=== PATIENT | female | born 1945 | race Caucasian/White ===

== ENCOUNTER 2022-08-01 09:00 | Outpatient (RCR) | payer MEDICARE, SELFPAY ==
--- NOTE | 2022-07-11 10:22 | PT.OPE ---
[facility] Outpatient Eval Start: 06/18/22 07:56 Freq: Status: Active Protocol: Document 06/18/22 11:17 CJT (Rec: 06/18/22 11:19 CJT [id number]) E-signed By Froylan Machado PT Physical Therapy Outpatient Evaluation Insurance Information Recert Due Date 07/30/22 Insurance Name Medicare B Medical Diagnosis M25.571 - pain in R foot M25.572 - pain in L foot Treating Diagnosis M25.571 - pain in R foot M25.572 - pain in L foot Referring Enrico Miller MD Subjective Subjective Pt presents with complaints of bilateral foot pain. Pt has received therapy for this in the past with success. Pain is located at B calcaneus on plantar and posteromedial surfaces as well as in balls of her feet. Pt reports waking in the night when she rolls over with pressure on the back of her heel. Pain in the balls of her feet also is made worse with walking. Pain is sharp/achy, intermittent and relieves with rest. Pain Comments Date of Last Physician Visit 06/09/22 Current Work Status Retired Preferred Name Olga Precautions Therapy Limitations/Systems Review Not Limited Objective Range of Motion R ankle PF/DF: 55/8/5 L ankle PF/DF: 55/12/4 Strength Strength: 5/5 MMT for all LE motions bilaterally Palpation Palpation: pt notes sharp pain with palpation at posteromedial calcaneus, inferior calcaneus, and metatarsal heads 2-4 on plantar surface of foot bilaterally Assessment Assessment/Impression Pt is a 76 year old female who presents to OP PT clinic with complaints of B foot pain. Pt is well known to our clinic and has received treatment for this condition in the past as well as for her R TKA. Pt complains of pain in her feet at her calcaneus and at the balls of her feet with walking primarily. Pain has also been occurring whenever her heels make contact with a foot rest, her bed when she lays on her back, etc. Pain is sharp, intermittent, and relieves with rest or with appropriate positioning. Pt wears comfortable shoes that have been helpful in the past but only afford moderate relief at this time. Pt is a very active individual and struggles to stand on her feet for more than 60 minutes without having to sit and rest due to pain. Testing reveals strength and ROM WNL in B LEs but tightness is noted in B gastrocs (see objective). Skilled PT services are medically necessary to address deficits and return patient to highest level of function. Recommend physical therapy sessions 2/week for 6 weeks. Pt agrees with this plan. Primary Functional Limitations Walking, standing, resting feet on footrest or laying on back in bed Plan of Care Rehabilitation Potential Good Physical Therapy Goals STG - To be completed in 2-3 weeks: 1. Pt will report reduction in B foot pain by factor of 2 so that she may walk for recreation with her friends and family. 2. Pt will report ability to roll over in bed at night without waking due to pain in her heel when making contact with her mattress. LTG - To be completed in 6 weeks: 1. Pt to be I with HEP so that she may I manage progression of symptoms. 2. Pt will report ability to walk 60 minutes without onset of B heel and forefoot pain so that she may walk for pleasure and exercise with her friends and family members. Treatment Plan/Direct Interventions Ice/Cold/Vasopneumatic,Joint Mobilization,Manual Therapy, Neuromuscular Re-ed,Self-Care/ Home Management,Therapeutic Exercises,Ultrasound Frequency/Duration 2/week for 6 weeks Patient Will Be Discharged From Therapy Completion of LTG(s),Skills Plateau,Independent w/HEP, Independently Progressing Evaluation Billing Untimed Code Treatment Minutes 51 PT Eval No Charge No Complexity Low Certification Information Initial Certification Date 06/18/22 Ending Certification Date 07/30/22 Provider Signature Shows Agreement With POC & Medical Necessity Physician Comment/Change Comment or Changes Physician NPI Number #
--- NOTE | 2022-07-25 10:38 | PT.OPDN ---
[facility] Daily Note [facility] Out[facility] Daily Note Start: 06/18/22 07:56 Freq: Status: Active Protocol: Document 07/25/22 08:58 CJT (Rec: 07/25/22 10:38 CJT [id number]) E-signed By Froylan Machado, PT PT [facility] Daily Progress Note Visit Information Note Type Recert/Progress Note Visit Number 10 Insurance Authorized Visits tbd Physician Authorized Visits eval and treat Insurance Information Recert Due Date 07/30/22 Insurance Name Medicare B Medical Diagnosis M25.571 - pain in R foot M25.572 - pain in L foot Treating Diagnosis M25.571 - pain in R foot M25.572 - pain in L foot Referring Enrico Miller MD Subjective Subjective Pt is doing well. Continues to note improvements in B feet. Will complete a progress note today. Preferred Name Olga Home Exercise Home Exercise Comments [id number] Objective Other/Pertinent Objective R ankle PF/DF: 55/10/5 L ankle PF/DF: 60/10/5 Strength: 5/5 MMT for all LE motions bilaterally Palpation: pt notes minimal pain in posterior R calcaneus, otherwise pt reports no pain or tenderness with previously painful areas of B feet. Patient Instructed in Risks/Benefits Yes Manual Therapy Techniques Manual Therapy Minutes (minutes) 26 Manual Therapy Techniques STM/IASTM to B calcaneus (all sides), plantar fascia, plantar surface of metatarsal heads, gastroc, soleus, and peroneal tendons to facilitate blood flow and reduce tissue tension. Self Care Management Training Self-Care Activity Minutes (minutes) 6 Self Care Management Training B calcaneal fat pad taping w/ coverall base + skin drag at B posterior calcaneus to thicken area over bone spur Treatment Minutes Timed Code Treatment Minutes 32 Total Treatment Time 32 Billing Units Manual Therapy Units 2 Assessment/Impression Assessment/Impression Olga has progressed very well throughout her therapy so far. Is now having significantly less pain in all aspects of her feet with palpation as well as in standing and during ambulation. ROM of B ankles is relatively unchanged but WNL since initial evaluation. Pt has shown consistency with her HEP and is using lacrosse ball and acupoint ball to massage her feet daily and feels this has been most beneficial today. Next week she will attend her final two sessions and she notes that she feels confident that through her exercises and self -STM she can manage her symptoms I moving forward. Recommend continued PT services to address deficits and return pt to highest level of function. Plan of Care Physical Therapy Goals STG - To be completed in 2-3 weeks: 1. Pt will report reduction in B foot pain by factor of 2 so that she may walk for recreation with her friends and family. MET 2. Pt will report ability to roll over in bed at night without waking due to pain in her heel when making contact with her mattress. MET LTG - To be completed in 6 weeks: 1. Pt to be I with HEP so that she may I manage progression of symptoms. 2. Pt will report ability to walk 60 minutes without onset of B heel and forefoot pain so that she may walk for pleasure and exercise with her friends and family members. MET Daily Plan of Care Continue per POC Daily Plan of Care Comments Final 2 sessions next week. Recertification Information Provider Signature Shows Agreement With POC & Medical Necessity
== END 2022-10-09 16:06 | disposition home or self-care (01) ==
PROVIDERS: PCP Physician Assistant Medical; Visit Provider Physician Assistant Medical
DX: M79.672 Pain in left foot (principal); Z51.89 Encounter for other specified aftercare
CPT/HCPCS: 97035; 97110; 97140; 97161

== ENCOUNTER 2022-08-08 16:33 | Outpatient (CLI) | payer MEDICARE, SELFPAY ==
[2022-08-08 14:22] LABS: Microalbumin Creatinine Ratio 0 mg/g (0-30); Microalbumin Urine 1 mg/dL
[2022-08-08 14:27] LABS: Albumin* 4.3 g/dL (3.3-5.0); Chloride* 104 mmol/L (96-114)
[2022-08-08 14:28] LABS: Potassium* 4.4 mmol/L (3.6-5.1); Sodium* 143 mmol/L (135-149)
[2022-08-08 14:30] LABS: Alkaline Phosphatase* 95 U/L (40-150); Aspartate Amino Transferase* 26 U/L (12-35); Bilirubin Total* 0.5 mg/dL (0.1-1.5); Blood Urea Nitrogen* 16 mg/dL (7-30); Carbon Dioxide* 26 mmol/L (20-32); Cholesterol* 148 mg/dL (90-199); Creatinine* 0.9 mg/dL (0.5-1.5); Estimated Glomerular Filt Rate 65 ml/min; Glucose* 106 mg/dL (60-115); Total Protein* 7.1 g/dL (6.0-8.3)
[2022-08-08 14:31] LABS: Alanine Aminotransferase* 22 U/L (4-35); Calcium* 9.7 mg/dL (8.4-10.6); HDL Cholesterol* 49 mg/dL (>=50); LDL Cholesterol Calculated 74 mg/dL (<100); Triglycerides* 123 mg/dL (40-149)
[2022-08-08 14:58] LABS: Thyroid Stimulating Hormone* 0.767 uIU/mL (0.270-4.20)
== END 2022-08-08 16:34 | disposition home or self-care (01) ==
PROVIDERS: PCP Physician Assistant Medical; Visit Provider Physician Assistant Medical
DX: Z00.00 Encounter for general adult medical examination without abnormal findings (principal); E78.5 Hyperlipidemia, unspecified; R73.03 Prediabetes; E03.9 Hypothyroidism, unspecified
CPT/HCPCS: 80053; 80061; 82043; 82570; 84443

== ENCOUNTER 2023-01-07 09:49 | Outpatient (CLI) | payer MEDICARE, SELFPAY ==
[2023-01-07 15:13] LABS: Chlamydia DNA Amplified* NOT DETECTED (No Detected); GC DNA Amplified* NOT DETECTED (No Detected)
== END 2023-01-07 09:50 | disposition home or self-care (01) ==
PROVIDERS: PCP Physician Assistant Medical; Visit Provider Physician Assistant Medical
DX: N76.0 Acute vaginitis (principal); R10.13 Epigastric pain
CPT/HCPCS: 0353U; 80076; 83690

== ENCOUNTER 2023-01-08 14:43 | Outpatient (CLI) | payer MEDICARE, SELFPAY ==
--- NOTE | 2023-01-08 15:00 | CRLHL7_ITS ---
For Patients: As a result of the Century Cures Act, medical imaging exams and procedure reports are released immediately into your electronic medical record. You may view this report before your referring provider. If you have questions, please contact your health care provider. INDICATION: Upper quadrant pain TECHNIQUE: Ultrasound abdomen limited. Sonographic images of the right upper quadrant were obtained using novak-scale and color Doppler images. COMPARISON: None FINDINGS: Liver: Normal in size and echotexture. No masses. No intrahepatic biliary dilatation. Gallbladder: Cholelithiasis and sludge. Gallbladder wall thickening. No pericholecystic fluid. Common bile duct: 8 mm. Pancreas: Suboptimally visualized. Right kidney: Normal echotexture and cortex. No masses, stones, or hydronephrosis. IMPRESSION: Cholelithiasis and sludge with gallbladder wall thickening and mildly dilated common bile duct is 8 millimeters. Findings worrisome for cholecystitis. Dictated by Justin Benson MD @ 01/08/2023 5:09:24 PM (Electronically Signed)
--- NOTE | 2023-01-08 16:00 | CRLHL7_ITS ---
For Patients: As a result of the Century Cures Act, medical imaging exams and procedure reports are released immediately into your electronic medical record. You may view this report before your referring provider. If you have questions, please contact your health care provider. INDICATION: Weight loss, epigastric pain. TECHNIQUE: CT abdomen and pelvis acquired with 81 cc Isovue 370 IV contrast. COMPARISON: None. FINDINGS: Lower chest: Scattered atelectasis. Liver: Unremarkable. Normal in size and attenuation. No suspicious masses. Gallbladder and bile ducts: Mildly distended gallbladder with cholelithiasis and wall thickening. Pancreas: Unremarkable. No mass or inflammation. Spleen: Unremarkable. Normal in size. No masses. Adrenal glands: Unremarkable. No nodules. Kidneys: Unremarkable. No suspicious masses, stones, or hydronephrosis. GI tract: Colonic diverticulosis.. Normal in caliber. No sign of mass or inflammation. Normal appendix. Vasculature: Mild aortoiliac arterial calcifications. Abdominal aorta is normal in caliber. Mesenteric arteries are patent. Lymph nodes: Mildly enlarged portacaval lymph nodes. Peritoneum/Abdominal Wall: Unremarkable. No sign of mass or infiltration. No free air or significant free fluid. Pelvis: Hysterectomy. Mildly distended bladder. Bones: Degenerative changes. IMPRESSION: Mildly distended gallbladder with cholelithiasis and wall thickening. Constellation the findings are suspicious for acute cholecystitis. Recommend further evaluation with right upper quadrant ultrasound. Please note that all CT scans at this facility use dose modulation, iterative reconstruction, and/or weight-based dosing when appropriate to reduce radiation dose to as low as reasonably achievable. Dictated by Yaakov Cerrato MD @ 01/08/2023 4:08:54 PM (Electronically Signed)
== END 2023-01-08 14:44 | disposition home or self-care (01) ==
LOC: US 14:45
PROVIDERS: PCP Physician Assistant Medical; Visit Provider Physician Assistant Medical
DX: R10.13 Epigastric pain (principal); K80.20 Calculus of gallbladder without cholecystitis without obstruction; R63.4 Abnormal weight loss
CPT/HCPCS: 74177; 76705; Q9967

== ENCOUNTER 2023-01-09 08:15 | Day surgery (SDC) | payer MEDICARE, SELFPAY ==
[2023-01-09] VITALS (23 sets, daily range): BP systolic 89–150; BP diastolic 53–75; PULSE 67–87; RESP 12–18; TEMP 35.8–36.8; O2SAT 91–100; BMI 27.5
[2023-01-09 09:03] LABS: SARS Antigen* Negative (Negative)
--- NOTE | 2023-01-09 09:24 | W.ANESCHARGE ---
Anesthesia Charges Start Date/Time Anesthesia Start Date: 01/09/23 Anesthesia Start Time: 09:43 Stop Date/Time Anesthesia Stop Date: 01/09/23 Anesthesia Stop Time: 12:33 Summary Extremes of Age - Over 70 or under 1: MDA
[2023-01-09] MEDS: LACTATED RINGERS 1000 ML 1,000 ML 100 ML IV ×2 (09:43→10:51)
[2023-01-09] MEDS: PIPERACILLIN/TAZOBACTAM 3.375 GM in 0.9 % SODIUM CHLORIDE Mini-bag 100 ML IVPB ×3 (09:55→21:48)
[2023-01-09] MEDS: BUPIVACAINE 0.5% 30 ML INJECTION (12:07)
--- NOTE | 2023-01-09 12:35 | W.ANESCHARGE ---
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
[2023-01-09] MEDS: HYDROmorphone 0.5 mg/0.5 ml inj IVP (14:11)
[2023-01-09] MEDS: IBUPROFEN 600 MG TABLET PO (18:25)
[2023-01-09] MEDS: LACTATED RINGERS 1000 ML 1,000 ML 125 ML IV (18:26)
--- NOTE | 2023-01-09 19:11 | PC.NURSE ---
shift note: pt to floor @ 1315 via bed. pt rating abd pain 12/19. lap site glued and open to air x3. lap sites c/d/i. pt has active BS x4. pt tolerating regular diet. pt up to bathroom and voided. pt belching. vss stable post op.
--- NOTE | 2023-01-10 00:26 | PC.NURSE ---
Nursing Care Hours: 0415-1493 Pt this shift calm and cooperative with cares. No c/o pain. VSS. Tolerating regular diet. States positive for flatulence, no BM, BS active. Facilitator encouraged pt to walk the halls tomorrow to promote BM. Lap sites open to air, red boarders, no discharge. IV patent.
[2023-01-10 03:00] VITALS: BP 102/53; PULSE 62; RESP 18; TEMP 36.6; O2SAT 94
[2023-01-10] MEDS: PIPERACILLIN/TAZOBACTAM 3.375 GM in 0.9 % SODIUM CHLORIDE Mini-bag 100 ML IVPB ×2 (03:34→10:56)
--- NOTE | 2023-01-10 06:22 | PC.NURSE ---
Shift note: Pt is doing well. Ambulate with A1. Denied pain, SOB and N/V. Pt had 2 unmeasured urine tonight and confirmed of 2 other unmeasured urine before the shift start. Passing gas but no BM yet. Lung sounds clear and abdominal sound present at all 4 quadrant but hypoactive. Incision sites open to air and appears clean and dry. Vitally stable.
[2023-01-10 07:00] VITALS: BP 111/55; PULSE 74; RESP 18; TEMP 36.3; O2SAT 97
[2023-01-10 07:28] LABS: Basophils Percent Auto 0.2 % (0.0-3.0); Eosinophils Percent Auto 0.1 % (0.0-7.0); Hematocrit 35.5 % (33.0-51.0); Hemoglobin* 11.4 gm/dL (12.0-16.0); Immature Granulocytes Pct Auto 0.3 %; Lymphocytes Percent Auto 15.2 % (20-44); Mean Corpuscular HGB Conc 32 gm/dL (32-36); Mean Corpuscular Hemoglobin 29 pg (26-34); Mean Corpuscular Volume 89 fL (80-100); Monocytes Percent Auto 5.7 % (0.0-11.0); Neutrophils Percent Auto 78.5 % (42.0-72.0); Platelet Count* 415 K/uL (140-440); RDW Coefficient of Variation % 13.2 % (11.5-15.5); White Blood Count* 16.42 K/uL (4.50-11.00)
[2023-01-10 07:32] LABS: Slide Review Reflex No
[2023-01-10 07:42] LABS: Albumin* 3.4 g/dL (3.3-5.0)
[2023-01-10 07:43] LABS: Chloride* 104 mmol/L (96-114); Sodium* 138 mmol/L (135-149)
[2023-01-10 07:45] LABS: Bilirubin Direct* 0.2 mg/dL (0.0-0.5); Bilirubin Total* 0.6 mg/dL (0.1-1.5); Carbon Dioxide* 26 mmol/L (20-32); Creatinine* 0.9 mg/dL (0.5-1.5); Est. Creatinine Clearance* 41.05; Estimated Glomerular Filt Rate 65 ml/min; Total Protein* 6.9 g/dL (6.0-8.3)
[2023-01-10 07:46] LABS: Alanine Aminotransferase* 28 U/L (4-35); Alkaline Phosphatase* 93 U/L (40-150); Aspartate Amino Transferase* 33 U/L (12-35); Blood Urea Nitrogen* 11 mg/dL (7-30); Calcium* 8.7 mg/dL (8.4-10.6); Glucose* 131 mg/dL (60-115)
--- NOTE | 2023-01-10 10:13 | P.GSOP_ITS ---
Operative Note Date of procedure: 01/09/23 Pre-op diagnosis: Acute cholecystitis Post-op diagnosis: Emphysematous gallbladder, modifier 22 applied to the procedure Type of Procedure: Laparoscopic cholecystectomy Indications: Patient is a 77-year-old female who presented to her primary care provider with a 3 week history of intermittent right upper quadrant abdominal pain. A workup was obtained with evidence on workup of acute cholecystitis. I had a detailed conversation with the patient regarding the diagnosis of acute cholecystitis. We discussed the treatment options including observation with diet modification and laparoscopic cholecystectomy. We discussed the risks of surgery (including but not limited to) the risks of bleeding, infection, injury to other structures in the abdomen including bile duct injury, bile leak and conversion to an open operation. We discussed the possibility that the patient's pain not improve with surgery. We discussed the possibility of permanent post-operative diarrhea that may require medical management. Additionally, the conceivably of complications requiring additional surgery or further hospitalization were also discussed including the risks of [place], respiratory failure, stroke and blood clots. The patient voiced an understanding of our conversation, had the opportunity to ask questions, agreed to accept the risks of surgery and asked that we proceed with surgery. Procedure Description: After discussing the risks and benefits of the procedure, the patient signed informed consent.? The operative site was marked and the patient was brought to the operating room and placed on the operating table in supine position.? Care was taken to pad the patient's pressure points.?? The patient was then intubated by anesthesia.?? The operative site was then prepped and draped in the usual sterile fashion.? A time-out was then performed. Entrance to the abdomen was gained via a 5 mm Visiport in the left upper quadrant. The abdomen was insufflated and briefly surveyed for signs of injury. There was none. 11 mm umbilical port was placed as well as 2 working ports along the right costal margin. Patient was then placed in reverse Trendelenburg position with the right side up. A significant amount of omental adhesions were present around the gallbladder. Dissection was performed bluntly with the suction tile power shear operator and electrocautery. At least an hour of dissection was needed in order to visualize the gallbladder, which was distended and appeared pa rtially necrotic. The laparoscopic needle was introduced into the abdomen to decompress the gallbladder with expulsion of purulent material. A sample was sent for culture. The gallbladder fundus was grasped and retracted cephalad. The omentum was further dissected off of the infundibulum. This dissection was made difficult secondary to inflammatory adhesions present and friability of the gallbladder itself. The infundibulum was grasped. A combination of hook cautery and blunt dissection was used to carefully dissect out the cystic duct and artery until they could clearly be seen entering the gallbladder without any intervening structures. The gallbladder was dissected off the cystic plate to achieve the critical view. Once this was achieved the cystic duct and artery were each clipped with 2 clips proximally and 1 clip distally and transected with the scissors. The gallbladder was then taken off of the liver bed. During this portion of the procedure the gallbladder was very necrotic and a portion of the posterior wall was left on the gallbladder fossa. The remains of the gallbladder were then removed from the abdomen using an Endo-Catch bag. The posterior wall within the gallbladder fossa was cauterized. The gallbladder bed was surveyed for hemostasis. The abdomen was copiously irrigated with normal saline. The umbilical port fascia was closed with 0 Vicryl via the [place]- Fior. The ports were then removed under direct vision. The skin was closed with absorbable subcuticular suture. Instrument sponge and needle counts were correct at the end of the case. The patient was then woken and transferred to the PACU in stable condition. ? Findings: Emphysematous, necrotic gallbladder. [facility] Surgeon: Enid Aguilar MD Estimated blood loss (mL): 25 Specimen: Gallbladder Condition: stable Disposition: floor
--- NOTE | 2023-01-10 10:20 | PM.GSCN ---
History of Present Illness Consult details Date Seen: 01/09/23 Consult date: 01/09/23 Narrative: Patient initially presented to her primary care provider earlier this week for intermittent right upper quadrant abdominal pain. She states that the pain has been going on for about the last 3 weeks. It would get worse after eating, especially fatty foods. Over the last week the pain has persisted, making it difficult for her to do her day-to-day activities. Her abdominal surgical history is positive for hysterectomy. She denies any problems with bleeding, blood clots or anesthesia. Workup was obtained with LFTs within normal limits. A CT scan showed dilation and surrounding inflammation of the gallbladder. An abdominal ultrasound demonstrates gallbladder wall thickening, pericholecystic fluid and stones. Review of Systems Status of ROS: Reports: 10 or more systems reviewed and unremarkable except as noted in History and below [facility] Medical History (Updated 01/09/23 @ 08:44 by Ana Rouse RN) DM (diabetes mellitus), type 2 ?E11.9 - Type 2 diabetes mellitus without complications (ICD-10) Surgical History (Updated 08/07/22 @ 15:53 by Roberto Carballo) History of total knee replacement (07/2021) ?Z96.659 - Presence of unspecified artificial knee joint (ICD-10) S/P cataract surgery ?Z98.49 - Cataract extraction status, unspecified eye (ICD-10) S/P hysterectomy ?Z90.710 - Acquired absence of both cervix and uterus (ICD-10) Status post bilateral knee replacements ?Z96.653 - Presence of artificial knee joint, bilateral (ICD-10) Status post total left knee replacement ?Z96.652 - Presence of left artificial knee joint (ICD-10) Family History (Updated 07/16/22 @ 12:29 by Abigail Roberson~SHANTELL) Mother Dementia Father Alcoholism Sister Breast cancer Heart disease Social History (Updated 07/16/22 @ 12:30 by Abigail Roberson~SHANTELL) Narrative: , former smoker Smoking Status: Former smoker How often do you have a drink containing alcohol: monthly or less Alcohol type: wine How many standard drinks containing alcohol do you have on a typical day: 1 or 2 How often do you have six or more drinks on one occasion: Never AUDIT-C Alcohol total score: 1 Non-prescribed substance use: denies use Caffeine: Yes Are you using contraception or practicing any form of control: No Meds Home Medications and Allergies Home Medications Medication Instructions Recorded Confirmed Type clobetasol 0.05 % topical ointment 1 applic topical BID PRN 07/16/22 01/09/23 History estradiol 0.01% (0.1 mg/gram) 1 g vaginal 2XW 07/16/22 01/09/23 History vaginal cream ferrous gluconate 324 mg (37.5 mg 324 mg PO QDAY 07/16/22 01/09/23 History iron) tablet multivitamin (Multiple Vitamins 1 tab PO QDAY 08/13/22 01/09/23 History tablet) amoxicillin 875 mg-potassium 1 tab PO BID 01/09/23 01/09/23 History clavulanate 125 mg tablet Allergies Allergy/AdvReac Type Severity Reaction Status Date / Time No Known Drug Allergies Allergy Verified 01/09/23 08:39 Exam Narrative: Exam Narrative: General: Alert and oriented, no acute distress Respiratory: Equal breath rise bilaterally, maintained on room air CV: Regular rhythm rate, well perfused Abdomen: Soft, tender in right upper quadrant with some guarding. Const: Vital Signs, click to edit/add: Vital Signs - 24 hr 01/09/23 12:29 01/09/23 13:00 01/09/23 12:35 Temperature 97.5 F L 97.5 F L Pulse Rate 67 68 67 Pulse Rate [Left B rachial] Pulse Rate [Pulse Oximeter] Respiratory Rate 16 12 18 Blood Pressure 136/71 138/66 146/68 H Blood Pressure [Le ft Arm] Pulse Oximetry [address] [facility] O[facility] Oxygen Flow Rate 10 01/09/23 12:40 01/09/23 12:45 01/09/23 12:50 Temperature 97.4 F L Pulse Rate 67 67 68 Pulse Rate [Left B rachial] Pulse Rate [Pulse Oximeter] Respiratory Rate 18 16 12 Blood Pressure 147/71 H 150/68 H 145/70 H Blood Pressure [Le ft Arm] Pulse Oximetry [address]od OxyMask OxyMask Room Air Oxygen Flow Rate 10 6 01/09/23 12:55 01/09/23 13:41 01/09/23 13:15 Temperature 96.4 F L 96.4 F L Pulse Rate 69 68 Pulse Rate [Left B rachial] Pulse Rate [Pulse Oximeter] 72 Respiratory Rate 12 16 16 Blood Pressure 138/65 Blood Pressure [Le ft Arm] 137/60 133/62 Pulse Oximetry 94 96 Oxygen Delivery Me thod Room Air Nasal Cannula Nasal Cannula Oxygen Flow Rate 2 2 01/09/23 13:15 01/09/23 17:00 01/09/23 13:30 Temperature 96.4 F L 97.7 F 96.4 F L Pulse Rate Pulse Rate [Left B rachial] Pulse Rate [Pulse Oximeter] 68 86 71 Respiratory Rate 16 16 16 Blood Pressure Blood Pressure [Le ft Arm] 133/62 118/65 135/75 Pulse Oximetry 95 93 95 Oxygen Delivery Me thod Nasal Cannula Nasal Cannula Nasal Cannula Oxygen Flow Rate 2 2 2 01/09/23 17:47 01/09/23 14:00 01/09/23 14:15 Temperature 96.4 F L 96.4 F L 96.4 F L Pulse Rate Pulse Rate [Left B rachial] 68 Pulse Rate [Pulse Oximeter] 72 68 76 Respiratory Rate 16 16 16 Blood Pressure Blood Pressure [Le ft Arm] 137/60 131/60 136/58 L Pulse Oximetry 96 96 95 Oxygen Delivery Me thod Nasal Cannula Nasal Cannula Nasal Cannula Oxygen Flow Rate 2 2 2 01/09/23 14:30 01/09/23 14:35 01/09/23 15:00 Temperature 96.4 F L 97.3 F L Pulse Rate Pulse Rate [Left B rachial] Pulse Rate [Pulse Oximeter] 67 68 82 Respiratory Rate 16 16 16 Blood Pressure Blood Pressure [Le ft Arm] 89/67 L 116/59 L 122/62 Pulse Oximetry 93 93 93 Oxygen Delivery Me thod Nasal Cannula Nasal Cannula Nasal Cannula Oxygen Flow Rate 2 2 2 01/09/23 16:00 01/09/23 17:00 01/09/23 18:15 Temperature 97.3 F L 97.7 F 97.4 F L Pulse Rate Pulse Rate [Left B rachial] 86 Pulse Rate [Pulse Oximeter] 78 87 Respiratory Rate 16 16 16 Blood Pressure Blood Pressure [Le ft Arm] 103/58 L 118/65 129/69 Pulse Oximetry 96 93 92 Oxygen Delivery Me thod Nasal Cannula Nasal Cannula Room Air Oxygen Flow Rate 2 2 01/09/23 21:00 01/09/23 19:00 01/09/23 23:00 Temperature 97.9 F 98.2 F Pulse Rate Pulse Rate [Left B rachial] Pulse Rate [Pulse Oximeter] 76 76 70 Respiratory Rate 18 18 18 Blood Pressure Blood Pressure [Le ft Arm] 104/53 L 103/58 L Pulse Oximetry 94 91 Oxygen Delivery Me thod Room Air Room Air Oxygen Flow Rate 01/10/23 03:00 01/10/23 07:00 Temperature 97.8 F 97.4 F L Pulse Rate Pulse Rate [Left B rachial] 74 Pulse Rate [Pulse Oximeter] 62 Respiratory Rate 18 18 Blood Pressure Blood Pressure [Le ft Arm] 102/53 L 111/55 L Pulse Oximetry 94 97 Oxygen Delivery Me thod Room Air Room Air Oxygen Flow Rate Results Labs Labs: Abnormal lab results 01/10/23 Range/Units 07:14 WBC 16.42 H (4.50-11.00) K/uL Hgb 11.4 L (12.0-16.0) gm/dL Neut % (Auto) 78.5 H (42.0-72.0) % Lymph % (Auto) 15.2 L (20-44) % Neut # (Auto) 12.90 H (1.7-7.0) K/uL Glucose 131 H (60-115) mg/dL Diabetes panel 01/10/23 Range/Units 07:14 Sodium 138 (135-149) mmol/L Potassium 4.0 (3.6-5.1) mmol/L Chloride 104 (96-114) mmol/L Carbon Dioxide 26 (20-32) mmol/L BUN 11 (7-30) mg/dL Creatinine 0.9 (0.5-1.5) mg/dL Glucose 131 H (60-115) mg/dL Calcium 8.7 (8.4-10.6) mg/dL AST 33 (12-35) U/L ALT 28 (4-35) U/L Alkaline Phosphatase 93 (40-150) U/L Total Protein 6.9 (6.0-8.3) g/dL Albumin 3.4 (3.3-5.0) g/dL Calcium panel 01/10/23 Range/Units 07:14 Calcium 8.7 (8.4-10.6) mg/dL Albumin 3.4 (3.3-5.0) g/dL Pituitary panel 01/10/23 Range/Units 07:14 Sodium 138 (135-149) mmol/L Potassium 4.0 (3.6-5.1) mmol/L Chloride 104 (96-114) mmol/L Carbon Dioxide 26 (20-32) mmol/L BUN 11 (7-30) mg/dL Creatinine 0.9 (0.5-1.5) mg/dL Glucose 131 H (60-115) mg/dL Calcium 8.7 (8.4-10.6) mg/dL Adrenal panel 01/10/23 Range/Units 07:14 Sodium 138 (135-149) mmol/L Potassium 4.0 (3.6-5.1) mmol/L Chloride 104 (96-114) mmol/L Carbon Dioxide 26 (20-32) mmol/L BUN 11 (7-30) mg/dL Creatinine 0.9 (0.5-1.5) mg/dL Glucose 131 H (60-115) mg/dL Calcium 8.7 (8.4-10.6) mg/dL Total Bilirubin 0.6 (0.1-1.5) mg/dL AST 33 (12-35) U/L ALT 28 (4-35) U/L Alkaline Phosphatase 93 (40-150) U/L Total Protein 6.9 (6.0-8.3) g/dL Albumin 3.4 (3.3-5.0) g/dL All other labs normal. Imaging Abdomen CT scan report/results: report reviewed and image reviewed Abdominal ultrasound report/results: report reviewed and image reviewed Assessment and Plan Assessment and plan (1) Acute cholecystitis: Status: Acute Plan Patient is a 77-year-old female with workup in clinical symptoms consistent with acute cholecystitis. I had a detailed conversation with the patient regarding the diagnosis of acute cholecystitis. We discussed the treatment options including observation with diet modification and laparoscopic cholecystectomy. We discussed the risks of surgery (including but not limited to) the risks of bleeding, infection, injury to other structures in the abdomen including bile duct injury, bile leak and conversion to an open operation. We discussed the possibility that the patient's pain not improve with surgery. We discussed the possibility of permanent post-operative diarrhea that may require medical management. Additionally, the conceivably of complications requiring additional surgery or further hospitalization were also discussed including the risks of AL, respiratory failure, stroke and blood clots. The patient voiced an understanding of our conversation, had the opportunity to ask questions, agreed to accept the risks of surgery and asked that we proceed with surgery.
--- NOTE | 2023-01-10 10:23 | PM.DS1 ---
DS: Providers Provider Date Seen: 01/10/23 Primary care physician: Anna Cummings PA-C Attending Physician on discharge: Enid Aguilar MD DS: Summary Hospital Course Hospital Course: Patient underwent a laparoscopic cholecystectomy, with evidence of emphysematous gallbladder. She was admitted overnight for IV antibiotics. On postop day 1 she was ambulating without difficulty, tolerating a regular diet, voiding independently and passing gas. Her labs do demonstrate an elevation in WBC (16) which is not surprising postoperatively and with the amount of inflammation that was seen. Will plan to discharge patient with a course of oral antibiotics, Augmentin and follow up with myself in 2 weeks. She was instructed to call the clinic or present to the emergency department should she develop increasing right upper quadrant abdominal pain or fevers at home. Time Spent with Patient Time attestation: Total time spent providing and/or coordinating discharge services: Exam Narrative: Exam Narrative: General: Alert and oriented, no acute distress Respiratory: Equal breath rise bilaterally, maintained on room air CV: Regular rhythm rate, well perfused Abdomen: Soft, appropriately tender over incision sites, no guarding or rebound. Const: Vital Signs, click to edit/add: Vital Signs - 24 hr 01/09/23 12:29 01/09/23 13:00 01/09/23 12:35 Temperature 97.5 F L 97.5 F L Pulse Rate 67 68 67 Pulse Rate [Left B rachial] Pulse Rate [Pulse Oximeter] Respiratory Rate 16 12 18 Blood Pressure 136/71 138/66 146/68 H Blood Pressure [Le ft Arm] Pulse Oximetry 94 95 100 Oxygen Delivery Me thod Room Air Room Air OxyMask Oxygen Flow Rate 10 01/09/23 12:40 01/09/23 12:45 01/09/23 12:50 Temperature 97.4 F L Pulse Rate 67 67 68 Pulse Rate [Left B rachial] Pulse Rate [Pulse Oximeter] Respiratory Rate 18 16 12 Blood Pressure 147/71 H 150/68 H 145/70 H Blood Pressure [Le ft Arm] Pulse Oximetry 100 100 95 Oxygen Delivery Me thod OxyMask OxyMask Room Air Oxygen Flow Rate 10 6 01/09/23 12:55 01/09/23 13:41 01/09/23 13:15 Temperature 96.4 F L 96.4 F L Pulse Rate 69 68 Pulse Rate [Left B rachial] Pulse Rate [Pulse Oximeter] 72 Respiratory Rate 12 16 16 Blood Pressure 138/65 Blood Pressure [Le ft Arm] 137/60 133/62 Pulse Oximetry 94 96 Oxygen Delivery Me thod Room Air Nasal Cannula Nasal Cannula Oxygen Flow Rate 2 2 01/09/23 13:15 01/09/23 17:00 01/09/23 13:30 Temperature 96.4 F L 97.7 F 96.4 F L Pulse Rate Pulse Rate [Left B rachial] Pulse Rate [Pulse Oximeter] 68 86 71 Respiratory Rate 16 16 16 Blood Pressure Blood Pressure [Le ft Arm] 133/62 118/65 135/75 Pulse Oximetry 95 93 95 Oxygen Delivery Me thod Nasal Cannula Nasal Cannula Nasal Cannula Oxygen Flow Rate 2 2 2 01/09/23 17:47 01/09/23 14:00 01/09/23 14:15 Temperature 96.4 F L 96.4 F L 96.4 F L Pulse Rate Pulse Rate [Left B rachial] 68 Pulse Rate [Pulse Oximeter] 72 68 76 Respiratory Rate 16 16 16 Blood Pressure Blood Pressure [Le ft Arm] 137/60 131/60 136/58 L Pulse Oximetry 96 96 95 Oxygen Delivery Me thod Nasal Cannula Nasal Cannula Nasal Cannula Oxygen Flow Rate 2 2 2 01/09/23 14:30 01/09/23 14:35 01/09/23 15:00 Temperature 96.4 F L 97.3 F L Pulse Rate Pulse Rate [Left B rachial] Pulse Rate [Pulse Oximeter] 67 68 82 Respiratory Rate 16 16 16 Blood Pressure Blood Pressure [Le ft Arm] 89/67 L 116/59 L 122/62 Pulse Oximetry 93 93 93 Oxygen Delivery Me thod Nasal Cannula Nasal Cannula Nasal Cannula Oxygen Flow Rate 2 2 2 01/09/23 16:00 01/09/23 17:00 01/09/23 18:15 Temperature 97.3 F L 97.7 F 97.4 F L Pulse Rate Pulse Rate [Left B rachial] 86 Pulse Rate [Pulse Oximeter] 78 87 Respiratory Rate 16 16 16 Blood Pressure Blood Pressure [Le ft Arm] 103/58 L 118/65 129/69 Pulse Oximetry 96 93 92 Oxygen Delivery Me thod Nasal Cannula Nasal Cannula Room Air Oxygen Flow Rate 2 2 01/09/23 21:00 01/09/23 19:00 01/09/23 23:00 Temperature 97.9 F 98.2 F Pulse Rate Pulse Rate [Left B rachial] Pulse Rate [Pulse Oximeter] 76 76 70 Respiratory Rate 18 18 18 Blood Pressure Blood Pressure [Le ft Arm] 104/53 L 103/58 L Pulse Oximetry 94 91 Oxygen Delivery Me thod Room Air Room Air Oxygen Flow Rate 01/10/23 03:00 01/10/23 07:00 Temperature 97.8 F 97.4 F L Pulse Rate Pulse Rate [Left B rachial] 74 Pulse Rate [Pulse Oximeter] 62 Respiratory Rate 18 18 Blood Pressure Blood Pressure [Le ft Arm] 102/53 L 111/55 L Pulse Oximetry 94 97 Oxygen Delivery Me thod Room Air Room Air Oxygen Flow Rate DS: Data Data Completed and Pending Labs on day of discharge: Labs from last 24 hours 01/10/23 07:14 WBC 16.42 H RBC 4.00 Hgb 11.4 L Hct 35.5 MCV 89 MCH 29 MCHC 32 RDW Coeff of [place] 13.2 Plt Count 415 Neut % (Auto) 78.5 H Lymph % (Auto) 15.2 L [place] % (Auto) 5.7 Eos % (Auto) 0.1 Baso % (Auto) 0.2 Neut # (Auto) 12.90 H Lymph # (Auto) 2.50 [place] # (Auto) 0.90 Eos # (Auto) 0.00 Baso # (Auto) 0.00 Sodium 138 Potassium 4.0 Chloride 104 Carbon Dioxide 26 BUN 11 Creatinine 0.9 Estimated Creat Clear 41.05 Estimated GFR 65 Glucose 131 H Calcium 8.7 Total Bilirubin 0.6 Direct Bilirubin 0.2 AST 33 ALT 28 Alkaline Phosphatase 93 Total Protein 6.9 Albumin 3.4 Discharge Plan Discharge Disposition: Home, Self-Care Discharging Surgeon: Enid Aguilar Follow-Up Appointment: 2 week follow up Prescriptions: New oxycodone 5 mg tablet 5 mg PO Q6H PRN (Reason: pain) Qty: 15 0RF senna 8.6 mg capsule 8.6 mg PO DAILY PRN (Reason: constipation) Qty: 90 0RF amoxicillin-pot clavulanate [Augmentin] 500-125 mg tablet 1 tab PO Q12H Qty: 10 0RF Continued multivitamin [Multiple Vitamins] Tablet 1 tab PO QDAY atorvastatin 20 mg tablet 20 mg PO QHS Qty: 90 3RF Rx Instructions: for cholesterol metformin 500 mg tablet extended release 24 hr 2,000 mg PO QDAY Qty: 360 3RF Rx Instructions: 4 tablets daily for blood sugar amoxicillin-pot clavulanate 875-125 mg tablet 1 tab PO BID clobetasol 0.05 % ointment 1 applic topical BID PRN estradiol 0.01 % (0.1 mg/gram) cream 1 g vaginal 2XW ferrous gluconate 324 mg (37.5 mg iron) tablet 324 mg PO QDAY levothyroxine 100 mcg tablet 100 mcg PO QDAY Qty: 90 3RF Rx Instructions: once daily for thyroid Activity Level: No strenuous activity Activity Detail: Activity as tolerated. Avoid strenuous activity. No lifting greater than 20 lb for 2 weeks. Discharge Diet: Regular Diet Detail: Continue with a low-fat diet for 2 weeks, after 2 weeks he can slowly start adding in higher fat foods. Patient Instructions: Laxative, Stimulant (By mouth), Amoxicillin/Clavulanate Potassium (By mouth), Oxycodone, Rapid Release (By mouth), General Anesthesia (DC), Laparoscopic Cholecystectomy (DC), Post-Operative Instructions: Laparoscopic Cholecystectomy Additional Instructions: You were prescribed a narcotic pain medication. In addition you may supplement with Tylenol and/or ibuprofen. Be sure to not exceed greater than 4 g of Tylenol in a 24 hour period. While on narcotic pain medicine please take stool softeners. A prescription of stool softeners has been sent to the pharmacy. Stop if having greater than 2 stools per day. You can shower right away. Do not soak in a bath or go swimming for 2 weeks. Forms: Work/School Release Follow-up: Enid Aguilar MD [Staff Physician] - Discharge Orders: Discharge Order (Routine); Ordered 01/10/23 Ordered By: Enid Aguilar
[2023-01-10] MEDS: IBUPROFEN 600 MG TABLET PO (11:07)
--- NOTE | 2023-01-10 12:20 | PC.NURSE ---
shift note:pt up in [facility] indept. pt rating abd pain 2/10 and was medicated with ibuprofen per d.o. BS active x4. pt tolerates regular diet. incison sites x3 c/d/i. dc'd iv to Rt hand intact. Reviewed dc instructions and copies sent with pt at or. Belongings reviewed and sent with pt at or.
== END 2023-01-10 12:21 | disposition home or self-care (01) ==
LOC: OR 09:39 → MEDSURG 13:19
PROVIDERS: Anesthesiology; PCP Physician Assistant Medical; Visit Provider Surgery
PROC: 0FT44ZZ Resection of Gallbladder, Percutaneous Endoscopic Approach (ICD-10-PCS; CPT 47562; principal; 2023-01-09 09:45)
DX: K80.12 Calculus of gallbladder with acute and chronic cholecystitis without obstruction (principal)
CPT/HCPCS: 47562; 00790; 36415; 80048; 80076; 85025; 87070; 87075; 87186; 87205; 87426; 88304; 99100; A9270; J0330; J1100; J1170; J2370; J2405; J2543; J2704; J2710; J3010; J3490; J7120

== ENCOUNTER 2023-02-14 02:42 | Emergency (ER) | payer MEDICARE, SELFPAY ==
[2023-02-14] VITALS (8 sets, daily range): BP systolic 119–141; BP diastolic 67–84; PULSE 59–74; RESP 16; TEMP 36.7–36.9; O2SAT 95–99; BMI 26.1
--- NOTE | 2023-02-14 03:01 | CRLHL7_ITS ---
For Patients: As a result of the Cures Act, medical imaging exams and procedure reports are released immediately into your electronic medical record. You may view this report before your referring provider. If you have questions, please contact your health care provider. INDICATION: Chest pain TECHNIQUE: Chest radiograph 1 view COMPARISON: None FINDINGS: Mediastinum: The mediastinum is normal in appearance. The heart silhouette is normal in size and morphology. Mild elevation of the right hemidiaphragm is noted. Lung: Both lungs are unremarkable in appearance with small lung volumes. No sign of pleural effusion seen. No pneumothorax is identified. Bone and Soft tissue: Unremarkable for age. IMPRESSION: 1. No acute cardiopulmonary disease is seen. Dictated by Omer Gibson MD @ 02/14/2023 3:24:18 AM Dictated by: Omer Gibson MD @ 02/14/2023 03:24:21 (Electronically Signed)
--- NOTE | 2023-02-14 03:05 | ED_ITS ---
HPI - Chest Pain General Chief Complaint: Chest Pain Stated Complaint: Chest Pain Time Seen by Provider: 02/14/23 02:45 History of Present Illness HPI narrative: Patient is a 77-year-old woman who woke approximately an hour ago with left- sided chest pain. Pain is 610 in intensity and sharp. Pain persisted and she came emergency room where EKG upon arrival showed normal sinus rhythm without any ST or T-wave changes. Patient has no history of heart disease but does have history of borderline blood sugar. She has not taken any phrx-pio-tsrpwba medications for her pain and has had no similar symptoms previously. No diaphoresis. She does have some mild nausea. No other significant symptoms patient has otherwise been in her usual state of health. Related Data Previous Rx's Medication Instructions Recorded levothyroxine 100 mcg tablet 100 mcg PO QDAY #90 tabs 07/17/22 atorvastatin 20 mg tablet 20 mg PO QHS #90 tabs 08/13/22 metformin 500 mg tablet,extended 2,000 mg (4 x 500 mg) PO QDAY #360 08/13/22 release 24 hr tabs clobetasol 0.05 % topical ointment 1 applic topical BID PRN vulvar sx 02/05/23 #60 grams Allergies Allergy/AdvReac Type Severity Reaction Status Date / Time No Known Drug Allergies Allergy Verified 02/14/23 03:03 Review of Systems Status of ROS Reports: 10 or more systems reviewed and unremarkable except as noted in History and below [facility] Medical History DM (diabetes mellitus), type 2 ?E11.9 - Type 2 diabetes mellitus without complications (ICD-10) Surgical History Status post total left knee replacement ?Z96.652 - Presence of left artificial knee joint (ICD-10) History of total knee replacement (07/2021) ?Z96.659 - Presence of unspecified artificial knee joint (ICD-10) Status post bilateral knee replacements ?Z96.653 - Presence of artificial knee joint, bilateral (ICD-10) S/P cataract surgery ?Z98.49 - Cataract extraction status, unspecified eye (ICD-10) S/P hysterectomy ?Z90.710 - Acquired absence of both cervix and uterus (ICD-10) Family History Mother Dementia Father Alcoholism Sister Breast cancer Heart disease Social History Narrative: , former smoker Smoking Status: Former smoker Second hand tobacco smoke exposure: No How often do you have a drink containing alcohol: monthly or less Alcohol type: wine How many standard drinks containing alcohol do you have on a typical day: 1 or 2 How often do you have six or more drinks on one occasion: Never AUDIT-C Alcohol total score: 1 Non-prescribed substance use: denies use Caffeine: Yes Are you using contraception or practicing any form of control: No Exam Narrative Exam Narrative: EXAM GENERAL: Patient appears comfortable and well. EYES: No scleral icterus. LYMPH: No supraclavicular or cervical lymphadenopathy. SKIN: Visible skin seen during exam normal or with benign process only. EXT: No dependent lower extremity pedal edema. HEART: Regular rate and rhythm with no murmurs, rubs, or gallops. LUNGS: Clear to auscultation bilaterally with no crackles or wheezes. ABD: Soft, non tender, non distended. PSYCH: Good eye contact, speech is not pressured. Const Vital Signs, click to edit/add: Vital Signs - 24 hr 02/14/23 02:58 02/14/23 03:00 02/14/23 03:00 Temperature 98.0 F Pulse Rate 71 Pulse Rate [Right Pulse Oximeter] 70 Respiratory Rate 16 16 Blood Pressure 141/70 H Blood Pressure [Right Upper Arm] 141/70 H Pulse Oximetry 96 98 97 Oxygen Delivery Method Room Air 02/14/23 03:01 02/14/23 03:17 02/14/23 03:31 Temperature 98.0 F Pulse Rate 68 64 Pulse Rate [Right Pulse Oximeter] 74 Respiratory Rate 16 16 16 Blood Pressure 129/68 119/67 Blood Pressure [Right Upper Arm] 128/72 Pulse Oximetry 96 96 95 Oxygen Delivery Method Room Air 02/14/23 04:01 Temperature Pulse Rate 59 L Pulse Rate [Right Pulse Oximeter] Respiratory Rate 16 Blood Pressure 127/69 Blood Pressure [Right Upper Arm] Pulse Oximetry 99 Oxygen Delivery Method Course Course Hospital Course: Patient seen examined. EKG is normal. Troponin D-dimer CBC basic metabolic panel portable chest x-ray pending. Vital Signs Vital signs: Initial Vital Signs Pulse Rate 71 02/14/23 02:58 Respiratory Rate 16 02/14/23 02:58 Blood Pressure 141/70 H 02/14/23 02:58 Blood Pressure Mean 93 02/14/23 02:58 Pulse Oximetry 96 02/14/23 02:58 Vital Signs Pulse Rate 71 02/14/23 02:58 Respiratory Rate 16 02/14/23 02:58 Blood Pressure 141/70 H 02/14/23 02:58 Pulse Oximetry 96 02/14/23 02:58 Temperature 98.0 F 02/14/23 03:17 Pulse Rate 59 L 02/14/23 04:01 Respiratory Rate 16 02/14/23 04:01 Blood Pressure 127/69 02/14/23 04:01 Pulse Oximetry 99 02/14/23 04:01 Oxygen Delivery Method Room Air 02/14/23 03:17 MDM - Chest Pain MDM Narrative Medical decision making narrative: Patient is a 77-year-old woman who woke suddenly with chest pain. Pain was persistent when she arrived at the emergency room. EKG done at that time showed no acute abnormalities. Troponin negative x2 D-dimer negative CBC basic metabolic panel chest x-ray all unremarkable. This time sirs be noncardiac but do recommend she follow-up with her primary physician as an outpatient. She can use Tylenol Motrin ice and rest and follow up sooner problems develop. Differential Diagnosis Differential diagnosis: Likely fracture of rib, pneumothorax, stable angina, unstable angina pectoris, atypical chest pain, st elevation myocardial infarction, costochondritis and chest pain Lab Data Labs: Lab Results 02/14/23 02/14/23 Range/Units 03:00 04:30 WBC 9.06 (4.50-11.00) K/uL RBC 4.48 (4.00-5.20) m/uL Hgb 12.7 (12.0-16.0) gm/dL Hct 40.1 (33.0-51.0) % MCV 90 (80-100) fL MCH 28 (26-34) pg MCHC 32 (32-36) gm/dL RDW Coeff of [place] 14.6 (11.5-15.5) % Plt Count 195 (140-440) K/uL Neut % (Auto) 41.1 L (42.0-72.0) % Lymph % (Auto) 47.5 H (20-44) % [place] % (Auto) 6.3 (0.0-11.0) % Eos % (Auto) 4.7 (0.0-7.0) % Baso % (Auto) 0.3 (0.0-3.0) % Neut # (Auto) 3.70 (1.7-7.0) K/uL Lymph # (Auto) 4.30 H (0.90-2.90) K/uL [place] # (Auto) 0.60 (0.00-0.90) K/UL Eos # (Auto) 0.43 (0.00-0.50) K/uL Baso # (Auto) 0.03 (0.00-0.30) K/uL D-Dimer Quant (PE/DVT) 0.49 (0.00-0.50) ug/ml Sodium 142 (135-149) mmol/L Potassium 4.0 (3.6-5.1) mmol/L Chloride 106 (96-114) mmol/L Carbon Dioxide 23 (20-32) mmol/L BUN 15 (7-30) mg/dL Creatinine 0.7 (0.5-1.5) mg/dL Estimated Creat Clear 41.05 Estimated GFR 88 ml/min Glucose 118 H (60-115) mg/dL Calcium 9.5 (8.4-10.6) mg/dL Troponin I < 0.01 L (0.01-0.04) ng/mL POC Troponin I 0.00 L (0.01-0.04) ng/ml Discharge Plan Discharge Clinical Impression: Chest pain Patient Disposition: Home, Self-Care Condition: Stable Instructions: Chest Pain (ED) Additional Instructions: Tylenol Motrin Rest Fluids Activity Level: No Restrictions Discharge Diet: Regular Prescriptions: No Action atorvastatin 20 mg tablet 20 mg PO QHS Qty: 90 3RF Rx Instructions: for cholesterol metformin 500 mg tablet extended release 24 hr 2,000 mg PO QDAY Qty: 360 3RF Rx Instructions: 4 tablets daily for blood sugar clobetasol 0.05 % ointment 1 applic topical BID PRN (Reason: vulvar sx) Qty: 60 1RF levothyroxine 100 mcg tablet 100 mcg PO QDAY Qty: 90 3RF Rx Instructions: once daily for thyroid Follow Up/Referrals: Anna Cummings PA-C [Primary Care Provider] - Stand Alone Forms: [employer] Info Instructions
[2023-02-14 03:14] LABS: Basophils Absolute Auto 0.03 K/uL (0.00-0.30); Basophils Percent Auto 0.3 % (0.0-3.0); Eosinophils Absolute Auto 0.43 K/uL (0.00-0.50); Eosinophils Percent Auto 4.7 % (0.0-7.0); Hematocrit 40.1 % (33.0-51.0); Hemoglobin* 12.7 gm/dL (12.0-16.0); Immature Granulocytes Abs Auto 0.01 K/uL (0.00-0.30); Immature Granulocytes Pct Auto 0.1 %; Lymphocytes Percent Auto 47.5 % (20-44); Mean Corpuscular HGB Conc 32 gm/dL (32-36); Mean Corpuscular Hemoglobin 28 pg (26-34); Mean Corpuscular Volume 90 fL (80-100); Monocytes Percent Auto 6.3 % (0.0-11.0); Neutrophils Percent Auto 41.1 % (42.0-72.0); Platelet Count* 195 K/uL (140-440); RDW Coefficient of Variation % 14.6 % (11.5-15.5); Red Blood Count 4.48 m/uL (4.00-5.20); White Blood Count* 9.06 K/uL (4.50-11.00)
[2023-02-14 03:16] LABS: Slide Review Reflex No
[2023-02-14 03:29] LABS: Chloride* 106 mmol/L (96-114)
[2023-02-14 03:30] LABS: Sodium* 142 mmol/L (135-149)
[2023-02-14 03:32] LABS: Creatinine* 0.7 mg/dL (0.5-1.5); Est. Creatinine Clearance* 41.05; Estimated Glomerular Filt Rate 88 ml/min
[2023-02-14 03:33] LABS: Blood Urea Nitrogen* 15 mg/dL (7-30); Calcium* 9.5 mg/dL (8.4-10.6); Carbon Dioxide* 23 mmol/L (20-32); D Dimer Quantitative* 0.49 ug/ml (0.00-0.50); Glucose* 118 mg/dL (60-115)
[2023-02-14 03:46] LABS: Troponin I* < 0.01 ng/mL (0.01-0.04)
== END 2023-02-14 04:48 | disposition home or self-care (01) ==
PROVIDERS: Emergency Provider Internal Medicine; PCP Physician Assistant Medical
DX: R07.9 Chest pain, unspecified (principal)
CPT/HCPCS: 36415; 71045; 80048; 84484; 85025; 85379; 93005; 94761; 99283; 99284; 99285

== ENCOUNTER 2024-04-25 08:04 | Outpatient (CLI) | payer MEDICARE, SELFPAY ==
--- OUTSIDE RECORDS SUMMARY | 2024-04-26 15:01 | XMS_ITS | Clinical Summary ---
Author Organization [employer] [facility] [employer] Address [place], [place] [address] Care Team Providers Care Talent Management Specialist Name Role Phone Pcp, No Primary Care Provider Unavailabl e Allergies Active Allergy Reactions Criticality Noted Date Comments Cortisone Flushing 04/30/2018 Medications Medication Sig Dispensed Refills Start Date End Date Status atorvastatin (LIPITOR) 20 mg tablet Take 1 tablet by mouth at bedtime. 04/13/2018 Active levothyroxine (SYNTHROID) 125 mcg tablet Take 1 tablet by mouth once daily. 04/11/2018 Active metFORMIN (GLUCOPHAGE) 500 mg tablet Take 1 tablet by mouth once daily with a meal. 03/21/2018 Active hydrocortisone 1 % creamIndications:psor iasis Apply topically to affected area(s) once daily if needed for Itching. To hand Active clobetasol 0.05% (TEMOVATE 0.05% OINTMENT) 0.05 % ointment APPLY TOPICALLY TWICE DAILY SPARINGLY TO AFFECTED AREA 08/30/2020 Active Sodium Fluoride-Pot Nitrate 1.1-5 % pste USE DIRECTED 04/22/2021 Active Active Problems No known active problems Encounters Date Type Department Care Team Description 03/24/2024 Lab Requisition [facility] [phone] Pilar Good, SALES AND SERVICE ENGINEER from Last 3 Months Social History Tobacco Use Types Packs/Day Years Used Date Smoking Tobacco: Former Cigarettes Q uit: 1975 Smokeless Tobacco: Never Tobacco Cessation:Counseling Given: Yes Social Connections Answer Date Recorded Frequency of Communication with Friends and Fami ly Not on file 10/12/2021 Financial Resource Strain Answer Date R ecorded Difficulty of Paying Living Expenses Not on file 10/12/2021 Difficulty of Paying Living Expenses Not on file 10/12/2021 Sex and Gender Information Value Date Recorded Sex Assigned at Not on file Gender Identity Not on file Sexual Orientation Not on file Obstetrics History Last Filed Vital Signs Vital Sign Reading Time Taken Comments Blood Pressure 136/83 05/30/2021 8:29 AM CDT Pulse 74 05/30/2021 8:29 AM CDT Temperature 36.6 ??C (97.9 ??F) 05/30/2021 8 :29 AM CDT Respiratory Rate 16 04/30/2018 3:00 PM CDT Oxygen Saturation 100% 05/30/2021 8:2 9 AM CDT Inhaled Oxygen Concentration - - Weight 89.3 kg (196 lb 12.8 oz) 021 8:29 AM CDT sandals on Height 165.1 cm (5' 5) 04/30/2018 11:0 4 AM CDT Body Mass Index 32.75 04/30/2018 11:04 AM CDT Plan of Treatment Health Maintenance Due Date Last Done Comments Tdap 1954 Depression screening for age 12+ 1955 BMI (ht and wt on same day) for age 18+ 1961 Tetanus booster 1963 Zoster (shingles) series for age 50+ (1 of 2) 1993 DEXA/DXA scan for age 65+ 2008 Medicare Wellness for age 65+ 2008 Pneumococcal series for age 65+ (1 of 1 - PCV) 2008 COVID-19 vaccine series (3 - 24 season) 2023 12/11/2020, 11/20/2020 Influenza for age 65+ 06/12/2024 Procedures Procedure Name Priority Date/Time Associated Diagnosis Comments LAB TRACKING EVENT Routine 03/24/2024 1: 30 PM CDT PATH TISSUE EXAM Routine 03/24/2024 1:30 PM CDT from Last 3 Months Results * LAB TRACKING EVENT (03/24/2024 1:30 PM CDT) Other (Other) Client Collect / Unknown 03/24/2024 1:30 PM CDT 03/24/2024 3:36 PM CDT Pilar Good SALES AND SERVICE ENGINEER LAB BILL ONLY [email or web address] [facility] [address] [place] [address], * PATH TISSUE EXAM (03/24/2024 1:30 PM CDT) Case Report Pathology Report ?Case: [id number] ? Authorizing Provider: ??Pilar Good NP ?? Collected: ? 03/24/2024 1330 ? Ordering Location: ? [facility] ?Received: ?03/24/2024 1616 ? Pathologist: ? Toro Gomez MD ? Specimen: ?Left Labia ? 03/28/2024 3:30 PM CDT [facility] Final Diagnosis A) VULVA, LEFT, BIOPSY: 1. Hypertrophic lichenoid dermatitis, with features suggestive of lichen simplex chronicus 2. GMS stain is negative for fungal organisms 3. Negative for dysplasia and malignancy 03/28/2024 3:30 PM CDT [facility] Comment A) The differential diagnosis includes early lichen sclerosus, lichen planus, lichenoid drug reaction, or lichenoid keratosis. 03/28/2024 3:30 PM CDT [facility] Clinical Information Vulvar lesion. History of lichenoid mucositis ([id number], 01/2023) Physical exam shows 1.0 x 0.5 cm white, slightly raised plaque on the inner upper left labium minus. 03/28/2024 3:30 PM CDT [facility] Gross Description A) Received in formalin, labeled with the patient's name and date of , is a 0.4 x 0.3 cm skin punch biopsy narrowly excised to a depth of 0.4 cm. ??The skin surface is henry-white and variably slightly raised. ??The specimen is inked blue, bisected, and entirely submitted in 1 cassette. EKW 03/24/2024 03/28/2024 3:30 PM CDT [facility] Microscopic Description The final diagnosis is based on microscopic examination of appropriate sections of all specimens. Immunohistochem ical/special staining was performed, the results of which are as follows: - p53: Non-aberrant (heterogeneous expression) - p16: Non-aberrant (patchy positive) - GMS: Negative 03/28/2024 3:30 PM CDT [facility] Additional Information Interpreted at [employer] [facility] - [address], [place] [address] 03/28/2024 3:30 PM CDT [facility] Other (Left Labia) 03/24/2024 1:30 PM CDT 03/24/2024 4:16 PM CDT Pilar Good NP PATHOLOGY/CYTOLOG Y [facility] [address] [place] [address], [place] from Last 3 Months Care Teams Talent Management Specialist Relationship Specialty Start Date End Date Pcp, No . PCP - General 04/30/18
== END 2024-04-25 08:05 | disposition home or self-care (01) ==
LOC: NFLDREF 04-26 14:59
PROVIDERS: PCP Physician Assistant Medical; Referring Provider Physician Assistant Medical; Visit Provider Physician Assistant Medical
DX: E03.9 Hypothyroidism, unspecified (principal); I11.9 Hypertensive heart disease without heart failure; R73.03 Prediabetes; E78.5 Hyperlipidemia, unspecified
CPT/HCPCS: 80053; 80061; 84443

== ENCOUNTER 2024-04-27 13:10 | Outpatient (CLI) | payer MEDICARE, SELFPAY ==
--- OUTSIDE RECORDS SUMMARY | 2024-04-27 13:16 | XMS_ITS | Clinical Summary ---
Author Organization [employer] [facility] Address [place], [place] [address] Care Team Providers Care Durability Engineer Name Role Phone Pcp, No Primary Care [...] Department Care Team Description 03/24/2024 Lab Requisition [facility] [phone] Pilar Good, TRESTLEMAN from Last 3 Months Social History Tobacco [...] CDT 03/24/2024 3:36 PM CDT Pilar Good TRESTLEMAN LAB BILL ONLY [employer] [facility] [address] [place] [address], * PATH TISSUE EXAM (03/24/2024 1:30 PM CDT) Case Report Pathology Report ?Case: [id number] ? Authorizing Provider: ??Pilar Good NP ?? Collected: ? 03/24/2024 1330 ? Ordering Location: ? [facility] ?Received: ?03/24/2024 1616 ? Pathologist: ? Toro Gomez MD ? Specimen: ?Left Labia ? 03/28/2024 3:30 PM CDT [facility]C [facility]AL LABORATORY Final Diagnosis A) VULVA, LEFT, BIOPSY: 1. Hypertrophic lichenoid dermatitis, with features suggestive of lichen simplex chronicus 2. GMS stain is negative for fungal organisms 3. Negative for dysplasia and malignancy 03/28/2024 3:30 PM CDT [facility] Comment A) The differential diagnosis includes early lichen sclerosus, lichen planus, lichenoid drug reaction, or lichenoid keratosis. 03/28/2024 3:30 PM CDT [facility] Clinical Information Vulvar lesion. History of lichenoid mucositis ([id number], 01/2023) Physical exam shows 1.0 x 0.5 cm white, slightly raised plaque on the inner upper left labium minus. 03/28/2024 3:30 PM CDT [facility] Gross Description A) Received in formalin, labeled with the patient's name and date of , is a 0.4 x 0.3 cm skin punch biopsy narrowly excised to a depth of 0.4 cm. ??The skin surface is henry-white and variably slightly raised. ??The specimen is inked blue, bisected, and entirely submitted in 1 cassette. EKW 03/24/2024 03/28/2024 3:30 PM CDT [facility] Microscopic Description The final diagnosis is based on microscopic examination of appropriate sections of all specimens. Immunohistochem ical/special staining was performed, the results of which are as follows: - p53: Non-aberrant (heterogeneous expression) - p16: Non-aberrant (patchy positive) - GMS: Negative 03/28/2024 3:30 PM CDT [facility] Additional Information Interpreted at [facility] [employer] [facility] - [address], [place] [address] 03/28/2024 3:30 PM CDT [facility] Other (Left Labia) 03/24/2024 1:30 PM CDT 03/24/2024 4:16 PM CDT Pilar Good NP PATHOLOGY/CYTOLOG Y [facility] [address] [place] [address], [place] from Last 3 Months Care Teams Durability Engineer Relationship Specialty Start Date End Date Pcp, No . PCP - General 04/30/18
== END 2024-04-27 13:11 | disposition home or self-care (01) ==
PROVIDERS: PCP Physician Assistant Medical; Visit Provider Physician Assistant Medical
DX: E03.9 Hypothyroidism, unspecified (principal); E78.5 Hyperlipidemia, unspecified; R73.03 Prediabetes; G57.93 Unspecified mononeuropathy of bilateral lower limbs
CPT/HCPCS: 82306; 82607; 82728; 82746; 84425

== ENCOUNTER 2024-06-30 14:36 | Outpatient (CLI) | payer MEDICARE, SELFPAY ==
--- OUTSIDE RECORDS SUMMARY | 2024-06-30 14:39 | XMS_ITS | Clinical Summary ---
Author Organization [employer] [facility] Address [place], [place] [address] Care Team Providers Care Automotive Parts Counterperson Name Role Phone Pcp, No Primary Care [...] Active Active Problems No known active problems Social History Tobacco Use Types Packs/Day Years [...] for age 50+ (1 of 2) 1993 RSV vaccine for adults or pr egnancy (1 - 1-dose 60+ series) 2003 DEXA/DXA scan for age 65+ 2008 Medicare Wellness for age 65+ 2008 Pneumococcal series for age 65+ (1 of 1 - PCV) 2008 COVID-19 vaccine series (3 - season) 2024 12/11/2020, 11/20/2020 Influenza for age 65+ 06/12/2024 Care Teams Automotive Parts Counterperson Relationship Specialty Start Date End Date Pcp, No . PCP - General 04/30/18
--- NOTE | 2024-06-30 15:00 | CRLHL7_ITS ---
For Patients: As a result of the Cures Act, medical imaging exams and procedure reports are released immediately into your electronic medical record. You may view this report before your referring provider. If you have questions, please contact your health care provider. BILATERAL SCREENING MAMMOGRAM WITH COMPUTER-AIDED DETECTION AND TOMOSYNTHESIS TECHNIQUE: CC and MLO views were obtained. These mammographic images have been obtained using full-field digital technique. These mammographic images were interpreted with the benefit of computer-aided detection. Breast tomosynthesis was used in this interpretation. COMPARISON FILM: 12/18/21, 07/23/20, 03/30/18. FINDINGS: There are scattered areas of fibroglandular density. IMPRESSION: There is no radiographic evidence for malignancy. ASSESSMENT: BI-RADS Category 2: Benign RECOMMENDATION: Routine screening mammogram in 1 year. A lay language report of this examination will be provided to the patient. JUSTIN BHAKTA M.D. Diagnostic Radiologist [email or web address] YONI/nancy Transcribed: 07/01/2024, 3:[address]/Dictated by: Justin Bhakta MD @ 07/01/2024 12:39:00 PM (Electronically Signed)
--- NOTE | 2024-06-30 15:30 | CRLHL7_ITS ---
For Patients: As a result of the Century Cures Act, medical imaging exams and procedure reports are released immediately into your electronic medical record. You may view this report before your referring provider. If you have questions, please contact your health care provider. DXA BONE MINERAL DENSITY STUDY Reason for exam: Screening. Current height (in): 65. Weight (lb): 165. Menopause age: 36. Ethnicity: White. 1. Have you had a previous hip or vertebral fracture? No. 2. Have you had any fractures during your adult life which did not result from significant trauma (e.g., auto accident)? No. 3. Did either of your parents have a hip fracture? No. 4. Do you smoke? No. 5. Have you ever taken Glucocorticoids? No. 6. Do you have rheumatoid arthritis? No. 7. Do you have secondary osteoporosis? No. 8. Do you drink 3 or more alcoholic drinks per day? No. 9. Are you being treated for osteoporosis? No. 10. Have you ever taken any of the following medications: Actonel, Evista, Fosamax, Miacalcin, Reclast, Boniva, Forteo, HRT (i.e. estrogen/hormone therapy), Protelos, Prolia, Vitamin D, Calcium, other ??? please specify. ANSWER: Yes, vitamin D and calcium. 11. Do you have any of the following medical conditions: Anorexia or bulimia, asthma or emphysema, end stage renal disease, hyperparathyroidism, any seizure disorders, cancer, inflammatory bowel diseases, hysterectomy, other ??? please specify. ANSWER: Yes, hysterectomy. 12. What was your maximum height (inches)? 66. 13. Do you perform weight bearing exercise regularly? Yes. 14. Do you regularly consume dairy products? Yes. 15. Do you drink caffeinated beverages? Yes. 16. At what age did your period start? 10. 17. Are you premenopausal? No. 18. How many full term pregnancies have you had? 2. 19. Have you ever missed your period for more than 6 months in a row (not including or menopause)? No. TECHNIQUE: Bone mineral density study was performed using the [employer] FINDINGS: The results of the study expressed as bone mineral density (BMD) are as follows: Lumbar spine L1-L4(L3): BMD: 1.198 g/cm2. T-score: 1.5. Z-score: 4.2. Neck Left: BMD: 0.865 g/cm2. T-score: 0.1. Z-score: 2.5. Right: BMD: 0.879 g/cm2. T-score: 0.3. Z-score: 2.6. Total Left: BMD: 1.060 g/cm2. T-score: 1.0. Z-score: 3.1. Right: BMD: 0.994 g/cm2. T-score: 0.4. Z-score: 2.5. IMPRESSION: Normal bone density. *Comparison exams done prior to 03/2020 were performed on different unit, Nanostellar. COMPARISON: Compared with scan of 12/18/2021, the bone mineral density has increased by 0.5 percent at the spine and decreased by 5.7 percent at the hip. Compared with scan of 06/02/2019, the bone mineral density has decreased by 9.1 percent at the spine and decreased by 4.1 percent at the hip. Justin Hernandez M.D. Diagnostic Radiologist [email or web address] SP/Dictated by: Justin Hernandez MD @ 07/01/2024 8:11:00 AM (Electronically Signed)
== END 2024-06-30 14:37 | disposition home or self-care (01) ==
LOC: MAMMO 14:37
PROVIDERS: PCP Physician Assistant Medical; Visit Provider Physician Assistant Medical
DX: Z12.31 Encounter for screening mammogram for malignant neoplasm of breast (principal); Z13.820 Encounter for screening for osteoporosis; Z78.0 Asymptomatic menopausal state
CPT/HCPCS: 77063; 77067; 77080

== ENCOUNTER 2025-03-25 16:55 | Emergency (ER) | payer MEDICARE, SELFPAY ==
--- OUTSIDE RECORDS SUMMARY | 2025-02-13 08:57 | XMS_ITS ---
Author Organization [facility] Address [address] , [address] [place] [address] Phone Care Team Providers Care Full Stack Engineer Name Role Phone Lebron GILLIAM,DALIA,RICHELLE, Raisa Quiñones Unavailable + Conditions or Problems No information available. Medications Medication Instructions Start Date Stop Date Generic Name [facility] Provider levothyroxine levothyroxine Raisa Diana DNP,VIDEO TAPE DUPLICATOR,MOLDED CANDLES WICKER LEVOTHYROXINE SODIUM 100 MCG TABS levothyroxine [id number] Raisa Diana DNP,VIDEO TAPE DUPLICATOR,MOLDED CANDLES WICKER METFORMIN HCL ER 500 MG LL74D-CGD metformin (glucophage xr) [id number] Raisa Diana DNP,VIDEO TAPE DUPLICATOR,MOLDED CANDLES WICKER ATORVASTATIN CALCIUM 20 MG TABS atorvastatin [id number] Raisa Diana DNP,VIDEO TAPE DUPLICATOR,MOLDED CANDLES WICKER ALPHA-LIPOIC ACID 600 MG CAPS alpha lipoic acid [id number] Raisa Diana DNP,VIDEO TAPE DUPLICATOR,MOLDED CANDLES WICKER cyanocobalamin (vitamin B-12) (cyanocobalamin (vitamin b-12)) vitamin B-12 Raisa Diana DNP,VIDEO TAPE DUPLICATOR,MOLDED CANDLES WICKER multivitamin multivitamin Raisa Diana DNP,VIDEO TAPE DUPLICATOR,MOLDED CANDLES WICKER levothyroxine levothyroxine Raisa Diana DNP,VIDEO TAPE DUPLICATOR,MOLDED CANDLES WICKER Medications Administered No information available. Allergies, Adverse Reactions, Alerts No information available. Results Date Name Value Unit Range Flag Description Office Visit: Office Visit f ax MEDS REVIEW Done Documenta tion of current medications (procedure) Plan of Care Type Date Detail Appointment 09:40 AM Oscar Jaen MD , [address], [address], [place], [address], Pending order Follow up Pending order Follow up Pending order Patient Instruct ions Procedures No information available. Vital Signs No information available. Immunizations No information available. Advance Directives No information available.
--- OUTSIDE RECORDS SUMMARY | 2025-02-13 08:57 | XMS_ITS ---
Author Organization [facility] Address [address] , [address] [place] [address] Phone Care Team Providers Care Project Geophysicist Name Role Phone Lebron GILLIAM,DALIA,RICHELLE, Raisa Quiñones Unavailable + Conditions or Problems No information available. Medications Medication Instructions Start Date Stop Date Generic Name [facility] Provider levothyroxine levothyroxine Raisa Diana DNP,STABLE CLEANER,PROFILE SAW SETUP OPERATOR LEVOTHYROXINE SODIUM 100 MCG TABS levothyroxine [id number] Raisa Diana DNP,STABLE CLEANER,PROFILE SAW SETUP OPERATOR METFORMIN HCL ER 500 MG [id number] metformin (glucophage xr) [id number] Raisa Diana DNP,STABLE CLEANER,PROFILE SAW SETUP OPERATOR ATORVASTATIN CALCIUM 20 MG TABS atorvastatin [id number] Raisa Diana DNP,STABLE CLEANER,PROFILE SAW SETUP OPERATOR ALPHA-LIPOIC ACID 600 MG CAPS alpha lipoic acid [id number] Raisa Diana DNP,STABLE CLEANER,PROFILE SAW SETUP OPERATOR cyanocobalamin (vitamin B-12) (cyanocobalamin (vitamin b-12)) vitamin B-12 Raisa Diana DNP,STABLE CLEANER,PROFILE SAW SETUP OPERATOR multivitamin multivitamin Raisa Diana DNP,STABLE CLEANER,PROFILE SAW SETUP OPERATOR levothyroxine levothyroxine Raisa Diana DNP,STABLE CLEANER,PROFILE SAW SETUP OPERATOR Medications Administered No information available. Allergies, Adverse Reactions, Alerts No information available. Results Date Name Value Unit Range Flag Description Office Visit: Office Visit f ax MEDS REVIEW Done Documenta tion of current medications (procedure) Plan of Care Type Date Detail Appointment 09:40 AM Oscar Jean MD , [address], [address], [place], [address], Pending order Follow up Pending order Follow up Pending order Patient Instruct ions Procedures No information available. Vital Signs No information available. Immunizations No information available. Advance Directives No information available.
[2025-03-25 16:57] VITALS: BP 145/83; PULSE 89; RESP 18; TEMP 36.4; O2SAT 95; BMI 25.3
--- OUTSIDE RECORDS SUMMARY | 2025-03-25 16:57 | XMS_ITS | Clinical Summary ---
Author Organization [facility] Address [address] , [address] [place] [address] Phone Care Team Providers Care Best Second Jobs Name Role Phone [facility] Unavailable Unava ilable Conditions or Problems Problem Name Problem Code Onset Date Status Entry Date Provider Comment Standard Description Annotate Neuropathic pain 719998311 (SNOMED CT) Active 06/06 Oscar Jean MD Neuropathic pain Peripheral polyneuropathy [id number] (SNOMED CT) Active 06/06 Oscar Jean MD Peripheral nerve disease Medications Medication Instructions Start Date Stop Date Generic Name [facility] Provider levothyroxine levothyroxine Raisa Diana DNP,ROOF TRUSS DETAILER,TIER IN LEVOTHYROXINE SODIUM 100 MCG TABS levothyroxine [id number] Raisa Diana DNP,ROOF TRUSS DETAILER,TIER IN METFORMIN HCL ER 500 MG [id number] metformin (glucophage xr) [id number] Raisa Diana DNP,ROOF TRUSS DETAILER,TIER IN ATORVASTATIN CALCIUM 20 MG TABS atorvastatin [id number] Raisa Diana DNP,ROOF TRUSS DETAILER,TIER IN ALPHA-LIPOIC ACID 600 MG CAPS alpha lipoic acid 98005246344 Raisa Diana DNP,ROOF TRUSS DETAILER,TIER IN cyanocobalamin (vitamin B-12) (cyanocobalamin (vitamin b-12)) vitamin B-12 Raisa Diana DNP,ROOF TRUSS DETAILER,TIER IN multivitamin multivitamin Raisa Diana DNP,ROOF TRUSS DETAILER,TIER IN levothyroxine levothyroxine Raisa Diana DNP,ROOF TRUSS DETAILER,TIER IN Medications Administered No information available. Allergies, Adverse Reactions, Alerts Allergy Name Reaction Description Start Date Severity Statu s Provider NO KNOWN DRUG ALLERGIES Mild Activ e Oscar Jean MD Results Date Name Value Unit Range Flag Description Office Visit: Office Visit N europathic pn of both feet MRI/CT at [place]. SMOK STATUS former smoker Tobacco smoking status Lab Report: (P) METHYLMALONI C ACID, IMMUNOFIXATION, SERUM, VITAMIN B6, P ... VIT B6 7.2 ng/mL 2.1-21.7 VITAMIN B6, PLASMA IFEINTERPUR * immunofix ation electrophoresis interpretation, urine METHYL MALON * nmol/L methylma lonic acid (MMA), serum Office Visit: Office Visit f ax MEDS REVIEW Done Documenta tion of current medications (procedure) Internal Other: Authorizatio n AUTHBENEFIT Yes Authoriza tion: Assignment of Benefits and Payment Agreement [email or web address] Yes Authorizat ion: Authorization for [facility] to leave messages, voicemail, send text messages, send emails AUTHRELHCARE Yes Authoriz ation: Release/Retrieval of Information to/from Healthcare Facilities, Pharmacy Benefit Payers and Providers ROIAUTHOTHER Yes Authoriz ation: Release of Information - Authorize Others/Insurance - Payment and Healthcare Operations [email or web address] Yes Authoriza tion: Release of Information - Authorize [facility] - Payment and Healthcare Operations AUTHPRIVPRAC Yes Authoriz ation: Notice of privacy practices HIECONSENT Yes Consent To Release information to the Health Information Exchange (HIE) Plan of Care Type Date Detail Appointment 09:40 AM Oscar Jean MD , [address] [facility], [address], [place], [address], Pending order Follow up Pending order Follow up Pending order Patient Instruct ions Pending order Follow up ROCIO Pending order Vitamin B6 (Pyri doxine) - fasting after midnight Pending order Follow up ROCIO Pending order Immunofixation S maia Pending order Methylmalonic Ac id Serum (MMA) Pending order Vitamin B6 (Pyri doxine) - fasting after midnight Pending order Patient Instruct ions Pending order Obtain outside r ecords Pending order Obtain outside r ecords Procedures Code Procedure Name Date Entry Date ORDERS Patient Instructions ORDERS Methylmalonic Acid Serum (MMA) ORDERS Immunofixation Serum ORDERS Obtain outside records 06/06 ORDERS Vitamin B6 (Pyridoxine) - fasting after m idnight Vital Signs No information available. Immunizations No information available. Advance Directives No information available.
--- OUTSIDE RECORDS SUMMARY | 2025-03-25 16:57 | XMS_ITS | Clinical Summary ---
Author Organization [facility] Address [address] [place] [address] Care Team Providers Care Spin Instructor Name Role Phone Pcp, No Primary Care Provider Unavailabl e Allergies Active Allergy Reactions Criticality Noted Date Comments Cortisone Flushing 04/30/2018 Medications atorvastatin (LIPITOR) 20 mg tablet Take 1 tablet by mouth at bedtime. 8 Active levothyroxine (SYNTHROID) 125 mcg tablet Take 1 tablet by mouth once daily. 8 Active metFORMIN (GLUCOPHAGE) 500 mg tablet Take 1 tablet by mouth once daily with a meal. 8 Active hydrocortisone 1 % creamIndication s:psoriasis Apply topically to affected area(s) once daily if needed for Itching. To hand Active clobetasol 0.05% (TEMOVATE 0.05% OINTMENT) 0.05 % ointment APPLY TOPICALLY TWICE DAILY SPARINGLY TO AFFECTED AREA 0 Active Sodium Fluoride-Pot Nitrate 1.1-5 % pste USE DIRECTED 1 Active Active Problems No known active problems [...] Paying Living Expenses Not on file 10/12/2021 Comments Unknown Sex and Gender Information Value Date Recorded Sex Assigned at Not on file Legal Sex Female 6:36 AM EXPEDITER SERVICE ORDER Gender Identity Not on file Sexual Orientation Not on file Obstetrics History Last Filed Vital Signs Vital Sign Reading Time Taken Comments Blood Pressure 136/83 05/30/2021 8:29 AM CDT Pulse 74 05/30/2021 8:29 AM CDT Temperature 36.6 C (97.9 F) 05/30/2021 8:29 AM CDT Respiratory Rate 16 04/30/2018 3:00 [...] for age 18+ 1961 Tetanus booster 1963 Pneumococcal series for age 50+ (1 of 1 - PCV) 1993 Zoster (shingles) series for age 50+ (1 of 2) 1993 DEXA/DXA scan for age 65+ 2008 Medicare Wellness for age 65+ 2008 RSV vaccine for adults or (1 - 1-dose 75+ series) 2018 COVID-19 vaccine series ( season) 2024 12/11/2020, 11/20/2020 Influenza Vaccine (Season Ended) 2025 Hepatitis B series for 19+ Aged Out N o longer eligible based on patient's age to complete this topic Insurance [id number] [place] [address] UCARE MEDICARE ADVANTAGE MR Care Teams Spin Instructor Relationship Specialty Start Date End Date Pcp, No . PCP - General 04/30/18
--- NOTE | 2025-03-25 17:21 | CRLHL7_ITS ---
For Patients: As a result of the Cures Act, medical imaging exams and procedure reports are released immediately into your electronic medical record. You may view this report before your referring provider. If you have questions, please contact your health care provider. Indication: Pain Technique: Frontal view of the chest and frontal and oblique views of the right ribs Comparison: None Findings/Impression: No acute, displaced fracture or malalignment. No suspicious osseous lesions. The soft tissues are unremarkable. The cardiomediastinal silhouette and pulmonary vasculature are unremarkable. There is no focal airspace consolidation, pleural effusion, or pneumothorax. Mild elevation of the right hemidiaphragm with likely minimal adjacent right basilar atelectatic changes. Dictated by Ace Onofre MD @ 03/25/2025 6:12:41 PM (Electronically Signed)
--- NOTE | 2025-03-25 17:23 | ED.GENADULT ---
HPI - General Adult General Chief complaint: Shoulder Injury/Pain Stated complaint: R side pain, and R shoulder pain Time Seen by Provider: 03/25/25 16:57 History of Present Illness HPI narrative: This 79-year-old female comes in reporting right lateral rib pain that began this morning. She does not report any injury event or strenuous activity but does state that she is being doing lots of coughing recently that she attributes to allergies. She also reports fiber 6 weeks of right shoulder pain that she attributes to arthritis. She feels that the to conditions are not really related. She does have full range of her right shoulder. Related Data Home Medications ?Medication ?Instructions ?Recorded ?Confirmed CoQ 10 PO 04/27/24 06/02/24 Iron supplement PO 04/27/24 06/02/24 Multivitamin PO 04/27/24 06/02/24 Previous Rx's ?Medication ?Instructions ?Recorded clobetasol 0.05 % topical ointment 1 applic topical BID PRN vulvar sx 02/05/23 #60 grams estradiol 0.01% (0.1 mg/gram) 1 g vaginal 2XW #42.5 grams 04/27/24 vaginal cream atorvastatin 20 mg tablet 20 mg PO QHS #90 tabs 03/16/25 levothyroxine 100 mcg tablet 100 mcg PO QDAY #90 tabs 03/16/25 metformin 500 mg tablet,extended 2,000 mg (4 x 500 mg) PO QDAY #360 03/16/25 release 24 hr tabs hydrocodone 5 mg-acetaminophen 325 1 tab PO Q4-6H PRN pain #20 tabs 03/25/25 mg tablet Allergies Allergy/AdvReac Type Severity Reaction Status Date / Time No Known Drug Allergies Allergy Verified 06/02/24 10:53 Review of Systems Status of ROS: Reports: 10 or more systems reviewed and unremarkable except as noted in History and below Narrative: Constitutional: No fevers, no weight gain or loss. Eyes: No discharge. No vision changes. HENT: No congestion, no sore throat, no ear pain. Cardiovascular: No palpitations. Respiratory: No shortness of breath, no wheezes. She reports lots of coughing recently. Gastrointestinal: No abdominal pain, no vomiting, no diarrhea. Genitourinary: No dysuria, no hematuria. Musculoskeletal: Normal range of motion. Skin: No rashes, no pruritis. Neurological: No dizziness, weakness, sensory change, speech change. Endo/Heme/Allergies: No bruising or bleeding. No polydipsia. Pysch: no suicidality, no anxiety, no insomnia. All other systems reviewed and are negative. [facility] History Anemia ?D64.9 - Anemia, unspecified (ICD-10) Encounter for counseling regarding advance directives (01/25/17) ?Z71.89 - Other specified counseling (ICD-10) IFG (impaired fasting glucose) ?R73.01 - Impaired fasting glucose (ICD-10) Surgical History History of cholecystectomy (~2022) ?Z90.49 - Acquired absence of other specified parts of digestive tract (ICD-10) Status post total left knee replacement ?Z96.652 - Presence of left artificial knee joint (ICD-10) History of total knee replacement (07/2021) ?Z96.659 - Presence of unspecified artificial knee joint (ICD-10) Status post bilateral knee replacements ?Z96.653 - Presence of artificial knee joint, bilateral (ICD-10) S/P cataract surgery ?Z98.49 - Cataract extraction status, unspecified eye (ICD-10) S/P hysterectomy ?Z90.710 - Acquired absence of both cervix and uterus (ICD-10) Family History Mother Dementia Father Alcoholism Sister Breast cancer Heart disease Social History Narrative: , New partner ( maru, lives together); winter in [place] former smoker( quit over 15 years ago) Water yoga 2 times per week . Smoking Status: Never smoker Second hand tobacco smoke exposure: No How often do you have a drink containing alcohol: monthly or less Alcohol type: wine How many standard drinks containing alcohol do you have on a typical day: 1 or 2 How often do you have six or more drinks on one occasion: Never AUDIT-C Alcohol total score: 1 Non-prescribed substance use: denies use Caffeine: Yes Are you using contraception or practicing any form of control: No Exam Narrative: Exam Narrative: Constitutional: Well-developed, well-nourished, no acute distress. HEENT: Normocephalic, atraumatic. Neck: Normal range of motion. Nontender. Supple. Heart: Regular. No murmurs. Normal rate. Intact distal pulses. Lungs: Clear to auscultation. No wheezes, rhonchi, or rales. Chest: Pain is distinctly reproduced in the right lateral ribs when taking a deep breath and when palpating in this area. Abdomen: Normal bowel sounds. Nontender. No rebound tenderness. Genitalia: Deferred. Back: No midline tenderness. Normal range of motion. Extremities: Normal range of motion. No injury. Skin: Intact. No rash. Warm. No erythema or pallor. Neurologic: No altered sensation. No weakness. Alert and oriented. Psychiatric: No suicidality. No anxiety or depression. No insomnia. Nursing notes and vitals signs are reviewed. Const: Vital Signs, click to edit/add: Vital Signs - 24 hr 03/25/25 16:57 Temperature 97.5 F L Pulse Rate [Pulse Oximeter] 89 Respiratory Rate 18 Blood Pressure [Ri ght Upper Arm] 145/83 H Pulse Oximetry 95 Oxygen Delivery Me thod Room Air Course Vital Signs Vital signs: Initial Vital Signs Temperature 97.5 F L 03/25/25 16:57 Temperature Source Temporal Artery Scan 03/25/25 16:57 Pulse Rate 89 03/25/25 16:57 Respiratory Rate 18 03/25/25 16:57 Blood Pressure 145/83 H 03/25/25 16:57 Blood Pressure Mean 103 03/25/25 16:57 Blood Pressure Position Sitting 03/25/25 16:57 Pulse Oximetry 95 03/25/25 16:57 Oxygen Delivery Method Room Air 03/25/25 16:57 Vital Signs Temperature 97.5 F L 03/25/25 16:57 Pulse Rate 89 03/25/25 16:57 Respiratory Rate 18 03/25/25 16:57 Blood Pressure 145/83 H 03/25/25 16:57 Pulse Oximetry 95 03/25/25 16:57 Oxygen Delivery Method Room Air 03/25/25 16:57 Temperature 97.5 F L 03/25/25 16:57 Pulse Rate 89 03/25/25 16:57 Respiratory Rate 18 03/25/25 16:57 Blood Pressure 145/83 H 03/25/25 16:57 Pulse Oximetry 95 03/25/25 16:57 Oxygen Delivery Method Room Air 03/25/25 16:57 Medical Decision Making MDM Narrative Medical decision making narrative: This patient comes in with pain in the lateral right ribs that is distinctly reproducible when taking a deep breath or coughing or palpating in this area. She states that she has been coughing more frequently and attributed it to allergy symptoms. I did obtain a chest x-ray with rib detail. There is no sign of pulmonary disease and no sign of rib fracture. The patient received prescriptions for Toradol from the [facility] and [place] from her preferred pharmacy for symptomatic relief. I also advised her to use cough medicine to help suppress the cough that is causing more trouble than benefit. Discharge Plan Discharge Clinical Impression: Chest wall pain Patient Disposition: Home, Self-Care Condition: Stable Additional Instructions: Take medication as needed and indicated. Follow up with MD for ongoing management or return if worsening. Prescriptions: New hydrocodone-acetaminophen 5-325 mg tablet 1 tab PO Q4-6H PRN (Reason: pain) Qty: 20 0RF No Action CoQ 10 PO Iron supplement PO Multivitamin PO estradiol 0.01 % (0.1 mg/gram) cream 1 g vaginal 2XW Qty: 42.5 2RF clobetasol 0.05 % ointment 1 applic topical BID PRN (Reason: vulvar sx) Qty: 60 1RF levothyroxine 100 mcg tablet 100 mcg PO QDAY Qty: 90 0RF Rx Instructions: once daily for thyroid atorvastatin 20 mg tablet 20 mg PO QHS Qty: 90 0RF Rx Instructions: for cholesterol metformin 500 mg tablet extended release 24 hr 2,000 mg PO QDAY Qty: 360 0RF Rx Instructions: 4 tablets daily for blood sugar Follow Up/Referrals: Anna Cummings PA-C [Primary Care Provider, Family Practice] Stand Alone Forms: [facility] Info Instructions
--- OUTSIDE RECORDS SUMMARY | 2025-03-25 17:52 | XMS_ITS | Clinical Summary ---
Author Organization [facility] Address [address] , [address] [place] [address] Phone Care Team Providers Care Fisher Eel Name Role Phone [facility] Unavailable Unava ilable Conditions or Problems Problem Name Problem Code Onset Date Status Entry Date Provider Comment Standard Description Annotate Neuropathic pain 335686125 (SNOMED CT) Active 06/06 Oscar Jean MD Neuropathic pain Peripheral polyneuropathy 522452106 (SNOMED CT) Active 06/06 Oscar Jean MD Peripheral nerve disease Medications Medication Instructions Start Date Stop Date Generic Name [facility] Provider levothyroxine levothyroxine Raisa Diaan DNP,CLEANER INDUSTRIAL,WORM GROWER LEVOTHYROXINE SODIUM 100 MCG TABS levothyroxine [id number] Raisa Diana DNP,CLEANER INDUSTRIAL,WORM GROWER METFORMIN HCL ER 500 MG [id number] metformin (glucophage xr) [id number] Raisa Diana DNP,CLEANER INDUSTRIAL,WORM GROWER ATORVASTATIN CALCIUM 20 MG TABS atorvastatin [id number] Raisa Diana DNP,CLEANER INDUSTRIAL,WORM GROWER ALPHA-LIPOIC ACID 600 MG CAPS alpha lipoic acid 29711987990 Raisa Diana DNP,CLEANER INDUSTRIAL,WORM GROWER cyanocobalamin (vitamin B-12) (cyanocobalamin (vitamin b-12)) vitamin B-12 Raisa Diana DNP,CLEANER INDUSTRIAL,WORM GROWER multivitamin multivitamin Raisa Diana DNP,CLEANER INDUSTRIAL,WORM GROWER levothyroxine levothyroxine Raisa Diana DNP,CLEANER INDUSTRIAL,WORM GROWER Medications Administered No information available. Allergies, Adverse Reactions, Alerts Allergy Name Reaction Description Start Date Severity Statu s Provider NO KNOWN DRUG ALLERGIES Mild Activ e Oscar Jean MD Results Date Name Value Unit Range Flag Description Office Visit: Office Visit N europathic pn of both feet MRI/CT at [place]. SMOK STATUS former smoker Tobacco smoking status [...] 09:40 AM Oscar Jean MD , [address], [address], [place], [address], Pending order Follow up Pending order Follow [...]
== END 2025-03-25 18:28 | disposition home or self-care (01) ==
PROVIDERS: Emergency Provider Emergency Medicine Emergency Medical Services; PCP Physician Assistant Medical
DX: R07.89 Other chest pain (principal)
CPT/HCPCS: 71101; 99284

== ENCOUNTER 2025-04-17 12:18 | Emergency (ER) | payer MEDICARE, SELFPAY ==
--- OUTSIDE RECORDS SUMMARY | 2025-04-17 12:21 | XMS_ITS | Clinical Summary ---
Author Organization [facility] Address [address] , [address] [place] [address] Phone Care Team Providers Care Dural Mechanic Name Role Phone [facility] Unavailable Unava ilable Conditions or Problems Problem Name Problem Code Onset Date Status Entry Date Provider Comment Standard Description Annotate Neuropathic pain 814849174 (SNOMED CT) Active 06/06 Oscar Jean MD Neuropathic pain Peripheral polyneuropathy 432181967 (SNOMED CT) Active 06/06 Oscar Jean MD Peripheral nerve disease Medications Medication Instructions Start Date Stop Date Generic Name [facility] Provider levothyroxine levothyroxine Raisa Diana DNP,SENIOR BUYER PLANNER,SLED MAKER LEVOTHYROXINE SODIUM 100 MCG TABS levothyroxine [id number] Raisa Diana DNP,SENIOR BUYER PLANNER,SLED MAKER METFORMIN HCL ER 500 MG [id number] metformin (glucophage xr) [id number] Raisa Diana DNP,SENIOR BUYER PLANNER,SLED MAKER ATORVASTATIN CALCIUM 20 MG TABS atorvastatin [id number] Raisa Diana DNP,SENIOR BUYER PLANNER,SLED MAKER ALPHA-LIPOIC ACID 600 MG CAPS alpha lipoic acid 38028217072 Raisa Diana DNP,SENIOR BUYER PLANNER,SLED MAKER cyanocobalamin (vitamin B-12) (cyanocobalamin (vitamin b-12)) vitamin B-12 Raisa Diana DNP,SENIOR BUYER PLANNER,SLED MAKER multivitamin multivitamin Raisa Diana DNP,SENIOR BUYER PLANNER,SLED MAKER levothyroxine levothyroxine Raisa Diana DNP,SENIOR BUYER PLANNER,SLED MAKER Medications Administered No information available. Allergies, Adverse Reactions, Alerts Allergy Name Reaction Description Start Date Severity Statu s Provider NO KNOWN DRUG ALLERGIES Mild Activ e Oscar Jean MD Results Date Name Value Unit Range Flag Description Office Visit: Office Visit N europathic pn of both feet MRI/CT at [place]. SMOK STATUS former smoker Tobacco smoking status [...] 09:40 AM Oscar Jean MD , [address] [facility] [address], [address], [place], [address], Pending order Follow up Pending order Follow [...]
--- OUTSIDE RECORDS SUMMARY | 2025-04-17 12:21 | XMS_ITS | Clinical Summary ---
Author Organization [facility] Address [address] [place] [address] Care Team Providers Care It Teacher Name Role Phone Pcp, No Primary Care [...] on file Legal Sex Female 6:36 AM CHIEF PILOT Gender Identity Not on file Sexual Orientation [...] Health Maintenance Due Date Last Done Comments Tetanus booster 1954 Depression screening for age 12+ 1955 BMI (ht and wt on same day) for age 18+ 1961 Pneumococcal series for age 50+ (1 of 1 - PCV) 1993 Zoster (shingles) series for age 50+ (1 of 2) 1993 DEXA/DXA scan for age 65+ 2008 Medicare Wellness for age 65+ 2008 RSV vaccine for adults or (1 - 1-dose 75+ series) 2018 COVID-19 vaccine series ( season) 2024 12/11/2020, 11/20/2020 Influenza Vaccine (#1) 2025 Hepatitis B series for 19+ Aged Out N o longer eligible based on patient's age to complete this topic Insurance [id number] [place] [address] UCARE MEDICARE ADVANTAGE MR Care Teams It Teacher Relationship Specialty Start Date End Date Pcp, No . PCP - General 04/30/18
[2025-04-17 12:40] VITALS: BP 121/79; PULSE 102; RESP 16; TEMP 36.4; O2SAT 95; BMI 25.0
--- NOTE | 2025-04-17 15:59 | CRLHL7_ITS ---
For Patients: As a result of the Century Cures Act, medical imaging exams and procedure reports are released immediately into your electronic medical record. You may view this report before your referring provider. If you have questions, please contact your health care provider. INDICATION: Right-sided chest pain. Weakness. Weight loss TECHNIQUE: CT abdomen and pelvis acquired with 95 cc Isovue intravenous contrast. Coronal and sagittal reformats were obtained. COMPARISON: CT abdomen/pelvis from 01/08/2023. FINDINGS: ABDOMEN AND PELVIS: Liver: Within normal limits. Spleen: Within normal limits. Pancreas: Within normal limits. Gallbladder and bile ducts: Cholecystectomy changes. Kidneys: Bilateral renal cortical atrophy. Adrenal glands: Within normal limits. Bowel: Within normal limits. Vascular: Atherosclerotic abdominal aorta and branch vessels. Lymph nodes: Within normal limits. Pelvis: Within normal limits. Bones: No acute fractures. Multilevel lumbar spondylosis. Mild levoconvex lumbar curvature. Abdominal wall: Within normal limits. IMPRESSION: 1. No acute intra-abdominal pathology. Please note that all CT scans at this facility use dose modulation, iterative reconstruction, and/or weight-based dosing when appropriate to reduce radiation dose to as low as reasonably achievable. Dictated by Aubrey Alexandra MD @ 04/17/2025 6:28:04 PM (Electronically Signed)
--- NOTE | 2025-04-17 15:59 | CRLHL7_ITS ---
For Patients: As a result of the Century Cures Act, medical imaging exams and procedure reports are released immediately into your electronic medical record. You may view this report before your referring provider. If you have questions, please contact your health care provider. INDICATION: Right-sided chest pain. TECHNIQUE: CT chest with 95 cc Isovue 370 i.v. contrast. Pulmonary embolism protocol. Coronal and sagittal reformats were obtained. COMPARISON: None. FINDINGS: Cardiovascular: The heart has an unremarkable appearance and size. Thoracic aorta is normal in caliber and appearance. Tiny filling defect within a left subsegmental pulmonary artery, series 4, image 114. No evidence of pulmonary embolism elsewhere. Evidence of right heart strain. Mediastinum and idana: Within normal limits. Lungs: Compressive atelectasis associated with a loculated below. The lungs are otherwise clear for Pleura and pericardium: A multiloculated pleural effusion along the right posterior medial lung. Chest wall and axilla: Within normal limits. Bones: Within normal limits. Upper abdomen: Bilateral renal cortical atrophy. Cholecystectomy clips. IMPRESSION: 1. A loculated right-sided pleural effusion. Indeterminate although no significant capsular enhancement to suggest infection. 2. A tiny subsegmental nonocclusive pulmonary embolism. No evidence of pulmonary embolism elsewhere. No evidence of right heart strain. Please note that all CT scans at this facility use dose modulation, iterative reconstruction, and/or weight-based dosing when appropriate to reduce radiation dose to as low as reasonably achievable. Dictated by Aubrey Alexandra MD @ 04/17/2025 6:21:30 PM (Electronically Signed)
--- NOTE | 2025-04-17 16:02 | ED.GENADULT ---
HPI - General Adult General Date Seen: 04/17/25 Chief complaint: Weakness Stated complaint: Weakness Time Seen by Provider: 04/17/25 15:37 History of Present Illness HPI narrative: Patient is an 79-year-old woman here with her partner for evaluation of worsening weakness. She was here about 3 weeks ago at which time she had some right-sided chest pain. 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 She had a chest x-ray with rib details which was negative. She was sent home with [place]. She says that did help with pain but she really says it through her for loop otherwise and she has been having hard time ever since. She has no appetite, had some trouble with constipation sounds like although she has had a good bowel movement today. She has not had nausea or vomiting. She does note about a 15 lb weight loss since the beginning of February. He has food just does not sound good to her. She thinks because she has not been eating she has become progressively more weak and over the past couple of days has started to use a walker. She still has some pain in the right lateral ribcage although it is now more in the back. She still has a cough, it is no worse. No fevers. No night sweats. No abdominal pain. She has not taken any [place] for at least a couple of weeks. Medical history reviewed, she is status post cholecystectomy she thinks at last year, has a history of hypothyroidism, prediabetes. Ex-smoker, minimal alcohol intake. Related Data Home Medications ?Medication ?Instructions ?Recorded ?Confirmed CoQ 10 PO 04/27/24 06/02/24 Iron supplement PO 04/27/24 06/02/24 Multivitamin PO 04/27/24 06/02/24 Previous Rx's ?Medication ?Instructions ?Recorded clobetasol 0.05 % topical ointment 1 applic topical BID PRN vulvar sx 02/05/23 #60 grams estradiol 0.01% (0.1 mg/gram) 1 g vaginal 2XW #42.5 grams 04/27/24 vaginal cream atorvastatin 20 mg tablet 20 mg PO QHS #90 tabs 03/16/25 levothyroxine 100 mcg tablet 100 mcg PO QDAY #90 tabs 03/16/25 metformin 500 mg tablet,extended 2,000 mg (4 x 500 mg) PO QDAY #360 03/16/25 release 24 hr tabs Allergies Allergy/AdvReac Type Severity Reaction Status Date / Time No Known Drug Allergies Allergy Verified 04/17/25 17:36 Review of Systems Status of ROS: Reports: 10 or more systems reviewed and unremarkable except as noted in History and below [facility] Medical History Anemia ?D64.9 - Anemia, unspecified (ICD-10) Encounter for counseling regarding advance directives (01/25/17) ?Z71.89 - Other specified counseling (ICD-10) IFG (impaired fasting glucose) ?R73.01 - Impaired fasting glucose (ICD-10) Surgical History History of cholecystectomy (~2022) ?Z90.49 - Acquired absence of other specified parts of digestive tract (ICD-10) Status post total left knee replacement ?Z96.652 - Presence of left artificial knee joint (ICD-10) History of total knee replacement (07/2021) ?Z96.659 - Presence of unspecified artificial knee joint (ICD-10) Status post bilateral knee replacements ?Z96.653 - Presence of artificial knee joint, bilateral (ICD-10) S/P cataract surgery ?Z98.49 - Cataract extraction status, unspecified eye (ICD-10) S/P hysterectomy ?Z90.710 - Acquired absence of both cervix and uterus (ICD-10) Family History Mother Dementia Father Alcoholism Sister Breast cancer Heart disease Social History Narrative: , New partner ( maru, lives together); winter in [place] former smoker( quit over 15 years ago) Water yoga 2 times per week . Smoking Status: Never smoker Second hand tobacco smoke exposure: No How often do you have a drink containing alcohol: monthly or less Alcohol type: wine How many standard drinks containing alcohol do you have on a typical day: 1 or 2 How often do you have six or more drinks on one occasion: Never AUDIT-C Alcohol total score: 1 Non-prescribed substance use: denies use Caffeine: Yes Are you using contraception or practicing any form of control: No Exam Narrative: Exam Narrative: Vital signs reviewed In general, alert, nontoxic Head: Normocephalic, atraumatic. Eyes: Sclera clear. Pupils equal and reactive. ENT: Mucous membranes moist. Neck: Supple without adenopathy. Heart: Regular rate and rhythm without murmur. Lungs: Clear. No increased work of breathing, crackles or wheezes. Chest is nontender to palpation. Abdomen: Soft, slight right upper quadrant tenderness without obvious organomegaly or rebound guarding or rigidity. Otherwise nontender. Extremities: Well perfused, pulses intact. Mild edema in both ankles. No erythema or calf tenderness. Neurologic: Alert, conversant. Speech fluent, face symmetric. Moves all extremities equally. Skin: Warm, dry well perfused. Affect: Normal. Const: Vital Signs, click to edit/add: Vital Signs - 24 hr 04/17/25 12:40 04/17/25 17:02 04/17/25 20:12 Temperature 97.5 F L Pulse Rate 90 99 Pulse Rate [Right Pulse Oximeter] 102 H Respiratory Rate 16 16 14 Blood Pressure 118/70 115/63 Blood Pressure [Ri ght Upper Arm] 121/79 Pulse Oximetry 95 97 98 Oxygen Delivery Me thod Room Air Room Air Room Air Course Course ED Course: Patient presents with progressive weakness, reported weight loss and loss of appetite over the past several weeks associated with a history of some right-sided lateral chest pain. Differential is fairly broad, and discussed with her we may not find a cause for her decreased appetite etcetera. I do think given that she is reporting weight loss it is reasonable to do imaging today to look for any kind of oncologic process, to do labs to look for metabolic derangement, dehydration, I am going to get a CT scan of the chest PE protocol to rule that out with this right-sided chest pain she has been having. An EKG here shows a sinus rhythm ventricular rate of 89. Otherwise no acute findings, no acute ST segment changes, unremarkable T-waves. Will place an IV and give 500 mL of normal saline as well as her partner is concerned about possible dehydration. Certainly also possible that medications side effects are at play here although it sounds like she has not taken any of the [place] for at least a couple of weeks, I would expect that to be out of her system at this point. Patient had a L of normal saline here. Repeat vital signs show a blood pressure of 115/63, pulse of 99. Her labs are notable for white blood cell count of 15 without significant left shift. Her hemoglobin is slightly low at 11, down a g and a half from a year ago. Platelets are elevated at 466,000 hundred sixty six thousand. CRP is elevated at 8.2 and sed rate is elevated at 86. Metabolic panel is entirely within normal limits. LFTs mildly elevated with an AST of 71 and an ALT of 51 but otherwise normal. TSH is normal, urinalysis is positive for nitrites and 10-25 white blood cells but also shows many squamous cells, of unclear significance clinically at this time. She went on to have CT scans of the chest, PE protocol as well as the abdomen and pelvis. I reviewed her CT scans, I did not see any significant findings in the abdomen or pelvis, I did see a loculated effusion on the right in the chest. Radiology notes these findings as well as this small nonocclusive subsegmental PE on the left. She has not had any left-sided chest pain, this seems to be largely an incidental finding. I did do bilateral lower extremity Dopplers in these are negative. At this time I am holding off on any anticoagulation. My concern with the loculated effusion would be that this could be infectious. While she does have mild tachycardia and an elevated white blood cell count, her blood pressure is stable, I do not at this time no that this is infectious process, I given her clinical condition is stable, we have not pursued sepsis. At this time, there is no indication for significant fluid resuscitation at 30 mL/kilos. I will obtain blood cultures and a lactate, but ideally we would get fluid from the thoracic cavity prior to initiating antibiotics. I spoke with our surgeon about doing thoracentesis here, she reviewed the images on CT and felt that this would be difficult to do with ultrasound guidance based on the positioning of the fluid collection. She recommended IR instead. Therefore, I called up to [facility], I spoke with the hospitalist there who does agree with the current management plan, as long as the patient is clinically stable, he feels also that holding off on antibiotics right now is the appropriate course of action until we were able to obtain fluid. If her clinical condition changes, we will readdress this. For now, plan will be to keep her in the ER until a bed is available at [facility] after midnight. Vital Signs Vital signs: Initial Vital Signs Temperature 97.5 F L 04/17/25 12:40 Temperature Source Temporal Artery Scan 04/17/25 12:40 Pulse Rate 102 H 04/17/25 12:40 Respiratory Rate 16 04/17/25 12:40 Blood Pressure 121/79 04/17/25 12:40 Blood Pressure Mean 93 04/17/25 12:40 Blood Pressure Position Sitting 04/17/25 12:40 Pulse Oximetry 95 04/17/25 12:40 Oxygen Delivery Method Room Air 04/17/25 12:40 Vital Signs Temperature 97.5 F L 04/17/25 12:40 Pulse Rate 102 H 04/17/25 12:40 Respiratory Rate 16 04/17/25 12:40 Blood Pressure 121/79 04/17/25 12:40 Pulse Oximetry 95 04/17/25 12:40 Oxygen Delivery Method Room Air 04/17/25 12:40 Temperature 97.5 F L 04/17/25 12:40 Pulse Rate 91 04/18/25 01:22 Respiratory Rate 14 04/18/25 01:22 Blood Pressure 104/62 04/18/25 01:22 Pulse Oximetry 97 04/18/25 01:22 Oxygen Delivery Method Room Air 04/18/25 01:22 Medications Administered Medications: Discontinued Medications Generic Name Dose Route Start Last Admin Trade Name Caitie PRN Reason Stop Dose Admin Sodium Chloride 500 mls @ 500 mls/hr 04/17/25 15:58 04/17/25 18:25 0.9 % Sodium Chloride 500 Ml IV 04/17/25 16:57 Infused .Q1H ONE Infusion Sodium Chloride 1,000 mls @ 75 mls/hr 04/17/25 21:00 04/17/25 21:36 0.9 % Sodium Chloride 1000 Ml IV 75 mls/hr .[id number] LEXY Administration Medical Decision Making Lab Data Labs: Lab Results 04/17/25 04/17/25 04/17/25 Range/Units 16:00 16:30 21:19 WBC 15.15 H (4.50-11.00) K/uL RBC 4.01 (4.00-5.20) m/uL Hgb 11.1 L (12.0-16.0) gm/dL Hct 35.0 (33.0-51.0) % MCV 87 (80-100) fL MCH 28 (26-34) pg MCHC 32 (32-36) gm/dL RDW Coeff of [place] 13.7 (11.5-15.5) % Plt Count 466 H (140-440) K/uL Neut % (Auto) 71.7 (42.0-72.0) % Lymph % (Auto) 22.8 (20-44) % [place] % (Auto) 4.8 (0.0-11.0) % Eos % (Auto) 0.1 (0.0-7.0) % Baso % (Auto) 0.3 (0.0-3.0) % Neut # (Auto) 10.90 H (1.7-7.0) K/uL Lymph # (Auto) 3.50 H (0.90-2.90) K/uL [place] # (Auto) 0.70 (0.00-0.90) K/UL Eos # (Auto) 0.00 (0.00-0.50) K/uL Baso # (Auto) 0.00 (0.00-0.30) K/uL Abs Immat Gran (auto) 0.00 (0.00-0.30) K/uL Imm/Tot Granulo (auto) 0.3 % ESR 86 H (2-20) mm/hr Sodium 136 (135-149) mmol/L Potassium 4.7 (3.6-5.1) mmol/L Chloride 98 (96-114) mmol/L Carbon Dioxide 26 (20-32) mmol/L Anion Gap 12 (7-15) mEq/L BUN 14 (7-30) mg/dL Creatinine 0.6 (0.5-1.5) mg/dL Estimated Creat Clear 39.70 Estimated GFR 90 ml/min Glucose 109 (60-115) mg/dL Lactate 1.5 (0.5-1.9) mmol/L Calcium 9.6 (8.4-10.6) mg/dL Total Bilirubin 1.0 (0.1-1.5) mg/dL Direct Bilirubin 0.5 (0.0-0.5) mg/dL AST 71 H (12-35) U/L ALT 51 H (4-35) U/L Alkaline Phosphatase 122 (40-150) U/L C-Reactive Protein 8.2 H (0.5-1.0) mg/dL Total Protein 8.8 H (6.0-8.3) g/dL Albumin 3.7 (3.3-5.0) g/dL TSH 3.220 (0.270-4.200) uIU/mL Urine Color Yellow (Yellow) Urine Appearance Cloudy A (Clear) Urine pH 6.0 (5.0-8.5) Ur Specific [place] 1.025 (1.000-1.030) Urine Protein 2+ A (Negative) Urine Glucose (UA) Negative (Negative) Urine Ketones 1+ A (Negative) Urine Blood Trace-intact A (Negative) Urine Nitrite Positive A (Negative) Urine Bilirubin Negative (Negative) Urine Urobilinogen 0.2 (0.2-1.0) Ur Leukocyte Esterase 1+ A (Negative) Urine RBC 0-2 (0-2) Urine WBC 10-25 A (0-5) Ur Squamous Epith Cells Many A (None-Few) Urine Bacteria Many A (None) Discharge Plan Discharge Clinical Impression: Loculated pleural effusion Patient Disposition: [facility] Condition: Stable Prescriptions: No Action CoQ 10 PO Iron supplement PO Multivitamin PO estradiol 0.01 % (0.1 mg/gram) cream 1 g vaginal 2XW Qty: 42.5 2RF clobetasol 0.05 % ointment 1 applic topical BID PRN (Reason: vulvar sx) Qty: 60 1RF levothyroxine 100 mcg tablet 100 mcg PO QDAY Qty: 90 0RF Rx Instructions: once daily for thyroid atorvastatin 20 mg tablet 20 mg PO QHS Qty: 90 0RF Rx Instructions: for cholesterol metformin 500 mg tablet extended release 24 hr 2,000 mg PO QDAY Qty: 360 0RF Rx Instructions: 4 tablets daily for blood sugar Stand Alone Forms: MyHealth Info Instructions
--- OUTSIDE RECORDS SUMMARY | 2025-04-17 16:02 | XMS_ITS | Clinical Summary ---
Author Organization [facility] Address [address] , [address] [place] [address] Phone Care Team Providers Care Administrative Support Technician Name Role Phone [facility] Unavailable Unava ilable Conditions or Problems Problem Name Problem Code Onset Date Status Entry Date Provider Comment Standard Description Annotate Neuropathic pain 094001458 (SNOMED CT) Active 06/06 Oscar Jean MD Neuropathic pain Peripheral polyneuropathy [id number] (SNOMED CT) Active 06/06 Oscar Jean MD Peripheral nerve disease Medications Medication Instructions Start Date Stop Date Generic Name [facility] Provider levothyroxine levothyroxine Raisa Diana DNP,HEAT TREATING OPERATOR,SURFBOARD MAKER LEVOTHYROXINE SODIUM 100 MCG TABS levothyroxine [id number] Raisa Diana DNP,HEAT TREATING OPERATOR,SURFBOARD MAKER METFORMIN HCL ER 500 MG [id number] metformin (glucophage xr) [id number] Raisa Diana DNP,HEAT TREATING OPERATOR,SURFBOARD MAKER ATORVASTATIN CALCIUM 20 MG TABS atorvastatin [id number] Raisa Diana DNP,HEAT TREATING OPERATOR,SURFBOARD MAKER ALPHA-LIPOIC ACID 600 MG CAPS alpha lipoic acid [id number] Raisa Diana DNP,HEAT TREATING OPERATOR,SURFBOARD MAKER cyanocobalamin (vitamin B-12) (cyanocobalamin (vitamin b-12)) vitamin B-12 Raisa Diana DNP,HEAT TREATING OPERATOR,SURFBOARD MAKER multivitamin multivitamin Raisa Diana DNP,HEAT TREATING OPERATOR,SURFBOARD MAKER levothyroxine levothyroxine Raisa Diana DNP,HEAT TREATING OPERATOR,SURFBOARD MAKER Medications Administered No information available. Allergies, Adverse Reactions, Alerts Allergy Name Reaction Description Start Date Severity Statu s Provider NO KNOWN DRUG ALLERGIES Mild Activ e Oscar Jean MD Results Date Name Value Unit Range Flag Description Office Visit: Office Visit N europathic pn of both feet MRI/CT at [facility] [place]. SMOK STATUS former smoker Tobacco smoking status [...] 09:40 AM Oscar Jean MD , [address], [address], [place], [address], Pending order Follow up Pending order Follow [...]
[2025-04-17 16:51] LABS: Appearance Urine Cloudy (Clear)
[2025-04-17 17:02] VITALS: BP 118/70; PULSE 90; RESP 16; O2SAT 97
[2025-04-17] MEDS: 0.9 % SODIUM CHLORIDE 500 ML 500 ML IV (17:03)
[2025-04-17 17:04] LABS: Albumin* 3.7 g/dL (3.3-5.0); Chloride* 98 mmol/L (96-114); Potassium* 4.7 mmol/L (3.6-5.1); Sodium* 136 mmol/L (135-149)
[2025-04-17 17:07] LABS: Alanine Aminotransferase* 51 U/L (4-35); Alkaline Phosphatase* 122 U/L (40-150); Anion Gap 12 mEq/L (7-15); Aspartate Amino Transferase* 71 U/L (12-35); Bilirubin Direct* 0.5 mg/dL (0.0-0.5); Bilirubin Total* 1.0 mg/dL (0.1-1.5); Blood Urea Nitrogen* 14 mg/dL (7-30); Carbon Dioxide* 26 mmol/L (20-32); Creatinine* 0.6 mg/dL (0.5-1.5); Est. Creatinine Clearance* 39.70; Estimated Glomerular Filt Rate 90 ml/min; Total Protein* 8.8 g/dL (6.0-8.3)
[2025-04-17 17:08] LABS: Calcium* 9.6 mg/dL (8.4-10.6); Glucose* 109 mg/dL (60-115)
[2025-04-17 17:47] LABS: TSH With Reflex to FT4* 3.220 uIU/mL (0.270-4.200)
--- NOTE | 2025-04-17 19:18 | CRLHL7_ITS ---
For Patients: As a result of the Century Cures Act, medical imaging exams and procedure reports are released immediately into your electronic medical record. You may view this report before your referring provider. If you have questions, please contact your health care provider. INDICATION: Subsegmental PE. TECHNIQUE: Ultrasound venous duplex bilateral lower extremity. Compression venous exam was performed using novak-scale, color Doppler, and spectral Doppler analysis. COMPARISON: None. FINDINGS: Deep veins: Sonographic imaging demonstrates the bilateral common femoral, deep femoral, superficial femoral, popliteal, peroneal, and posterior tibial veins to be fully compressible with normal color Doppler blood flow. Superficial veins: Greater saphenous veins are fully compressible. No popliteal cyst. IMPRESSION: No evidence of deep venous thrombosis within the evaluated veins of the bilateral lower extremities. Dictated by Jose Delaney MD @ 04/17/2025 9:25:40 PM (Electronically Signed)
[2025-04-17 19:20] LABS: Erythrocyte SedimentationRate* 86 mm/hr (2-20)
[2025-04-17 19:22] LABS: Hematocrit 35.0 % (33.0-51.0); Hemoglobin* 11.1 gm/dL (12.0-16.0); Immature Granulocytes Pct Auto 0.3 %; Mean Corpuscular HGB Conc 32 gm/dL (32-36); Mean Corpuscular Hemoglobin 28 pg (26-34); Mean Corpuscular Volume 87 fL (80-100); RDW Coefficient of Variation % 13.7 % (11.5-15.5); Red Blood Count 4.01 m/uL (4.00-5.20); White Blood Count* 15.15 K/uL (4.50-11.00)
[2025-04-17 19:27] LABS: Immature Granulocytes Abs Auto 0.00 K/uL (0.00-0.30); Lymphocytes Absolute Auto 3.50 K/uL (0.90-2.90); Slide Review Reflex No
[2025-04-17 20:12] VITALS: BP 115/63; PULSE 99; RESP 14; O2SAT 98
[2025-04-17 21:22] LABS: Lactate Sepsis w/Reflex* 1.5 mmol/L (0.5-1.9)
[2025-04-17 23:18] VITALS: BP 115/58; PULSE 99; RESP 14; O2SAT 97
[2025-04-18 01:22] VITALS: BP 104/62; PULSE 91; RESP 14; O2SAT 97
== END 2025-04-18 02:44 | disposition short-term general hospital (02) ==
PROVIDERS: Emergency Medicine; Emergency Provider Family Medicine; PCP Physician Assistant Medical
DX: I26.99 Other pulmonary embolism without acute cor pulmonale (principal)
CPT/HCPCS: 36415; 71275; 74177; 80053; 80076; 81001; 83605; 84443; 85025; 85651; 86140; 87040; 87086; 93005; 93970; 99284; 99285; J7030; Q9967

== ENCOUNTER 2025-04-18 02:30 | Outpatient (CLI) | payer MEDICARE, SELFPAY | END 2025-04-18 02:31 | disposition home or self-care (01) | LOC: AMB 04-20 12:18 | PROVIDERS: PCP Physician Assistant Medical; Visit Provider Family Medicine | DX: J90 Pleural effusion, not elsewhere classified (principal); R53.1 Weakness | CPT/HCPCS: A0425; A0429 ==

== ENCOUNTER 2025-05-17 11:04 | Outpatient (CLI) | payer MEDICARE, SELFPAY | END 2025-05-17 11:05 | disposition home or self-care (01) | PROVIDERS: PCP Physician Assistant Medical; Visit Provider Physician Assistant Medical | DX: R77.9 Abnormality of plasma protein, unspecified (principal); E78.5 Hyperlipidemia, unspecified; E03.9 Hypothyroidism, unspecified; R73.03 Prediabetes; R63.4 Abnormal weight loss; J90 Pleural effusion, not elsewhere classified | CPT/HCPCS: 80053; 80061; 84165; 84439; 84443; 86140; 87086 ==

== ENCOUNTER 2025-06-16 13:15 | Outpatient (CLI) | payer MEDICARE, SELFPAY | END 2025-06-16 13:16 | disposition home or self-care (01) | LOC: NFLDREF 06-21 15:15 | PROVIDERS: PCP Physician Assistant Medical; Referring Provider Physician Assistant Medical; Visit Provider Physician Assistant Medical | DX: R71.8 Other abnormality of red blood cells (principal) | CPT/HCPCS: 80053; 83615 ==

== ENCOUNTER 2025-07-31 09:15 | Outpatient (RCR) | payer MEDICARE, SELFPAY ==
--- NOTE | 2025-06-02 11:56 | PT.OPE ---
PT [facility] Eval PT [facility] Outpatient Eval Start: 06/02/25 09:11 Freq: Status: Active Protocol: Document 06/02/25 11:55 RAULITO (Rec: 06/02/25 11:56 RAULITO [id number]) E-signed By Froylan Machado PT Physical Therapy Outpatient Evaluation Insurance Information Recert Due Date 08/31/25 Insurance Name Medicare B,[employer] Medical Diagnosis R53.1 - weakness Treating Diagnosis R53.1 - weakness Referring Anna Page Subjective Preferred Name Olga Subjective Pt presents post R lung thoracentesis on 04/18/25. Pt reports she had been having some chest and rib pain starting in March that went misdiagnosed. Returned to [facility] about a month latera in March and was found to have some fluid on her lung which turned out to be pus, which was extracted via thoracentesis. During the last two months, pt has struggled to eat as she has had loss of appetite and has lost much of her strength and stamina. Pt is here today to learn how she can regain her strength and improve her balance and endurance. She has a hard time donning pants due to lack of hip flexion strength. Stairs have become more difficult. Can make it up one flight but gets SOB. Used to be able to complete 3 flights before becoming SOB. Balance is not as good as it was. Having a hard time with yoga now (tree pose). Has access to NuStep at her apartment. Would like to get back to walking for pleasure without getting short of breath. Would also like to be able to get into her partner's side car for his motorcycle. Pain Comments 0/10 Current Work Status Retired Precautions Therapy Limitations/ Not Limited Systems Review Objective Other/Pertinent B UE AROM WFL Objective R Shoulder Strength Flexion - 4/5 MMT Abduction - 4/5 MMT IR (neutral) - 5/5 MMT ER (neutral) - 4/5 MMT Empty Can - 4/5 MMT L Shoulder Strength Flexion - 4/5 MMT Abduction - 4/5 MMT IR (neutral) - 5/5 MMT ER (neutral) - 4/5 MMT Empty Can - 4/5 MMT B LE AROM WFL B knee AROM: 0-0-120 R hip flexion: 3/5 MMT R knee flexion: 5/5 MMT R knee extension: 4+/5 MMT R ankle DF: 5/5 MMT L hip flexion: 3/5 MMT L knee flexion: 5/5 MMT L knee extension: 4/5 MMT L ankle DF: 5/5 MMT 4-Stage Balance Test Stage I (NBOS): no sway Stage II (in-step): no sway Stage III (tandem): minimal sway, able to maintain tandem stance bilaterally >10 seconds Stage IV (single leg): pt able to maintain SL balance bilaterally with multiple attempts up to 10 seconds Timed Up and Go (TUG): 9.45 seconds 5 Times Rvu-jy-Pjtbk: 21.2 seconds 30-Second Urz-me-Wtkra: 8 (pt fails 1 attempt) 6-Minute Walk Test: 1184 ft Assessment Assessment/ Olga is a very pleasant 79 year old female who presents Impression to our clinic for evaluation and treatment of generalized weakness following pulmonary embolism. Olga tolerated walking and balance tests/exercises quite well today but shows a significant reduction in her LE and UE strength compared to when I had last worked with her in 2021. I do think that Olga will make a good recovery with PT but she does understand that making a full recovery to her physical condition earlier this year may not be achievable at her age. Therapy will consist of a variety of strength, endurance, and balance exercises and activities to allow Olga to return to her PLOF. The nature of the pts condition was explained and all questions were answered to the pts satisfaction. Skilled PT services are medically necessary to address deficits and return patient to highest level of function. Recommend physical therapy sessions 1-2/week for 4-8 weeks. Pt agrees with this plan. Printout of HEP was given for I completion and pt gives verbal understanding of each exercise. Primary Functional Walking, stairs, donning pants, entering/exiting Limitations partner's side car on motorcycle Plan of Care Rehabilitation Good Potential Physical Therapy /bgoals Goals STG - To be completed in 4 weeks: 1. Pt will improve 30 second Sit to Stand test score to 12 repetitions as indication of improved functional strength and balance to reduce risk of falls. LTG - To be completed in 8 weeks: 1. Pt to be I with HEP so that they may I manage progression of symptoms. 2. Pt will demo ability to ascend/descend 30 stairs with use of 1handrail and no SOB so that she may continue to climb steps to her apartment. 3. Pt will report ability to go for walks up to 30 minutes so that she may walk for pleasure and light level exercise. 4. Pt will demo at least 4+/5 MMT for all LE motions bilaterally to provide adequate strength to B hips/ knees and reduce risk of falls. Treatment Plan/ Joint Mobilization,Manual Therapy,Neuromuscular Re-ed, Direct Interventions Self-Care/Home Management,Therapeutic Activities, Therapeutic Exercises Frequency/Duration 1-2/week for 4-8 weeks Patient Will Be Completion of LTG(s),Skills Plateau,Independent w/HEP, Discharged From Independently Progressing Therapy Evaluation Billing Untimed Code 58 Treatment Minutes PT Eval No Charge No Complexity Moderate Certification Information Initial 06/02/25 Certification Date Ending Certification 08/31/25 Date Provider Signature Yes Required Provider Signature POC & Medical Necessity Shows Agreement With Physician NPI Number Write NPI# Here Physician Comment/ : Change Physician Signature Please Sign/Date Here & Date Requested
== END 2025-09-19 09:01 | disposition home or self-care (01) ==
PROVIDERS: PCP Physician Assistant Medical; Visit Provider Physician Assistant Medical
DX: R53.1 Weakness (principal); J90 Pleural effusion, not elsewhere classified; I26.99 Other pulmonary embolism without acute cor pulmonale; Z51.89 Encounter for other specified aftercare
CPT/HCPCS: 80053; 83615; 97110; 97112; 97162